=== PATIENT | male | born 1985 | race Caucasian/White ===

== ENCOUNTER 2020-06-30 14:12 | Outpatient (REF) | payer MEDICAID, SELFPAY | END 2020-06-30 14:13 | disposition home or self-care (01) | LOC: HO.LAB 14:12 | PROVIDERS: Visit Provider Internal Medicine | DX: Z20.828 Contact with and (suspected) exposure to other viral communicable diseases (principal) | CPT/HCPCS: C9803; U0003 ==

== ENCOUNTER → 2020-10-18 12:47 | Outpatient (REF) | payer MEDICAID, SELFPAY | LOC: HO.SL 12:47 | PROVIDERS: PCP Internal Medicine; Visit Provider Internal Medicine | DX: G47.33 Obstructive sleep apnea (adult) (pediatric) (principal) | CPT/HCPCS: 95806 ==

== ENCOUNTER → 2020-11-22 15:04 | Outpatient (BNVA) | payer MEDICAID, SELFPAY | PROVIDERS: PCP Internal Medicine; Visit Provider Physician Assistant ==

== ENCOUNTER → 2020-11-23 08:14 | Outpatient (BNVA) | payer MEDICAID, SELFPAY | PROVIDERS: PCP Internal Medicine; Visit Provider Surgery ==

== ENCOUNTER 2020-11-27 14:56 | Outpatient (REF) | payer MEDICAID, SELFPAY ==
[2020-11-28 15:51] LABS: H Pylori Breath Test DETECTED (NOT DETECTED)
== END 2020-11-27 14:57 | disposition home or self-care (01) ==
LOC: HO.LNP 14:56
PROVIDERS: PCP Internal Medicine; Visit Provider Physician Assistant
DX: Z11.0 Encounter for screening for intestinal infectious diseases (principal)
CPT/HCPCS: 83013; 99211

== ENCOUNTER 2020-11-28 09:29 | Outpatient (REF) | payer MEDICAID, SELFPAY ==
--- NOTE | ~2020-11-28 | XR_ITS ---
EXAMINATION: XR CHEST CLINICAL INFORMATION: Morbid obesity COMPARISON: Chest x-ray September 13, 2019 TECHNIQUE: 2 views of the chest were obtained. FINDINGS: Cardiac silhouette is normal in size. Lungs are well aerated. There is no lobar consolidation. No pleural effusion or pneumothorax. No acute osseous abnormality. XR/XR chest 2V IMPRESSION: Stable examination demonstrating no acute pulmonary pathology.
--- NOTE | 2020-11-28 09:35 | ECG_ITS ---
Test Reason : OBESITY Blood Pressure : / mmHG Vent. Rate : 075 BPM Atrial Rate : 075 BPM P-R Int : 172 ms QRS Dur : 098 ms QT Int : 388 ms P-R-T Axes : 036 033 013 degrees QTc Int : 433 ms Normal sinus rhythm Normal ECG When compared with ECG of 09-APR-2010 11:07, T wave amplitude has decreased in Lateral leads Referred By: Trevor Swift Electronically Signed By:ROLDAN MILNER MD
[2020-11-28 10:28] LABS: MANUAL DIFF FLAG NO
[2020-11-28 10:44] LABS: Basophils Percent Auto 0.1 % (0-2); Eosinophils Absolute Auto 0.1 X10*3/uL (0.0-0.4); Eosinophils Percent Auto 1.9 % (0-4); Hemoglobin 14.6 g/dl (14.0-18.0); Imm Gran Abs Auto 0.02 X10*3/uL (0.00-0.03); Imm Gran Pct Auto 0.3 % (0.0-0.4); Lymphocytes Absolute Auto 1.6 X10*3/uL (1.2-4.9); Lymphocytes Percent Auto 21.1 % (20-40); Mean Corpuscular HGB Conc 32.4 g/dl (31.0-36.0); Mean Corpuscular Hemoglobin 28.7 pg (27.0-33.0); Mean Corpuscular Volume 88.4 fL (80-98); Mean Platelet Volume 9.8 fL (9.4-12.4); Monocytes Absolute Auto 0.6 X10*3/uL (0.1-1.2); Monocytes Percent Auto 8.1 % (2-11); Neutrophils Absolute Auto 5.1 X10*3/uL (2.0-8.3); Neutrophils Percent Auto 68.5 % (45-73); Platelet Count 305 X10*3/uL (160-400); Red Blood Count 5.09 X10*6/uL (4.60-5.80); Red Cell Distribution Width 13.4 % (11.0-16.0); White Blood Count 7.4 X10*3/uL (4.8-10.8)
[2020-11-28 10:50] LABS: Estimated Average Glucose 120 mg/dL; Hemoglobin A1C 150.2013 umol/L; Hemoglobin A1c % 5.8 %
[2020-11-28 11:04] LABS: Alanine Aminotransferase 26 U/L (0-40); Albumin Level 4.3 g/dL (3.5-5.0); Alkaline Phosphatase 58 U/L (39-117); Anion Gap 10 (12-20); Aspartate Amino Transferase 21 U/L (5-37); Bilirubin Total 0.7 mg/dL (0.0-1.0); Blood Urea Nitrogen 11 mg/dL (9-16); C Reactive Protein 0.87 mg/dL (< or = 0.50); Calcium 9.2 mg/dL (8.4-10.2); Carbon Dioxide 29 mmol/L (22-29); Chloride 104 mmol/L (96-108); Cholesterol 197 mg/dL; Estimated Glomerular Filt Rate > 60; Glucose Random 100 mg/dL (60-115); HDL Cholesterol 36 mg/dL; LDL Cholesterol Calculated 146 mg/dl; Potassium 4.4 mmol/L (3.3-5.1); Sodium 139 mmol/L (135-145); Total Protein 7.3 g/dL (6.5-8.0); Triglycerides 75 mg/dL
[2020-11-28 11:09] LABS: Ferritin 132 ng/mL (20-250); TSH reflex Free T4 0.77 uIU/mL (0.32-4.0); Vitamin D 25-OH Total 17.4 ng/mL (>30)
[2020-11-28 11:27] LABS: Folate 11.4 ng/mL (> or = 4.0); Vitamin B12 565 pg/mL (200-900)
[2020-11-29 06:37] LABS: Insulin Level Total 28.1 uIU/mL
[2020-11-29 15:01] LABS: Calcium (PTHI) 9.5 mg/dL (8.6-10.3); PTHI 45 pg/mL (14-64)
[2020-12-01 07:51] LABS: Zinc 85 mcg/dL (60-130)
[2020-12-01 21:07] LABS: Vitamin A 40 mcg/dL (38-98)
[2020-12-02 12:42] LABS: Vitamin B1 11 nmol/L (8-30)
== END 2020-11-28 09:30 | disposition home or self-care (01) ==
LOC: HO.LAB 09:29
PROVIDERS: PCP Internal Medicine; Visit Provider Surgery
DX: E66.01 Morbid (severe) obesity due to excess calories (principal); K21.9 Gastro-esophageal reflux disease without esophagitis; I10 Essential (primary) hypertension; G47.30 Sleep apnea, unspecified
CPT/HCPCS: 36415; 71046; 80053; 80061; 82306; 82607; 82728; 82746; 83036; 83525; 83970; 84425; 84443; 84590; 84630; 85025; 86140; 93005

== ENCOUNTER → 2020-12-04 15:06 | Outpatient (BNVA) | payer MEDICAID, SELFPAY | PROVIDERS: PCP Internal Medicine; Visit Provider Physician Assistant ==

== ENCOUNTER 2020-12-06 09:20 | Outpatient (REF) | payer MEDICAID, SELFPAY ==
--- NOTE | ~2020-12-06 | FL_ITS ---
EXAMINATION: FL GI SERIES CLINICAL INFORMATION: Obesity. COMPARISON: None TECHNIQUE: Upper GI was performed using thin and thick barium and effervescent granules. FINDINGS: Esophageal motility is normal. There is a small, sliding-type hiatal hernia. There is mild gastroesophageal reflux. The stomach and duodenum are normal appearing. No fold thickening, mass, ulcer or stricture is seen. FLUOROSCOPY TIME: 0.7 minutes DOSE AREA PRODUCT: 10.5 uGy-m2 (microgray-meter squared) IMAGES: 15 saved fluoroscopic images FL/FL upper GI series IMPRESSION: Small, sliding-type hiatal hernia. Minimal gastroesophageal reflux.
--- NOTE | ~2020-12-06 | US_ITS ---
EXAMINATION: US COMPLETE ABDOMEN WITH LIVER ELASTOGRAPHY CLINICAL INFORMATION: Obesity COMPARISON: None. TECHNIQUE: Real-time imaging of the abdominal viscera. Noninvasive ultrasound liver fibrosis assessment is performed using Corina ElastPQ point quantification shear wave elastography (pSWE) with a C5-2 MHz transducer. Multiple elastography samples are obtained. FINDINGS: PANCREAS: Not well visualized. ABDOMINAL AORTA: Not well visualized. INFERIOR VENA CAVA: Visualized portions are normal. LIVER: Liver echotexture is increased. The liver is normal in contour. Liver slightly enlarged. There is a hypoechoic area adjacent to the gallbladder, characteristic location of focal fatty sparing. No other focal liver lesion is seen. There is no biliary duct dilatation. The right lobe measures 18 cm in length. The left lobe measures 13 cm in length. Portal flow is the main portal vein is patent with appropriate hepatopedal flow. Shear wave liver elastography median stiffness is 1.8 m/s (reference: normal median stiffness is 1.3 m/s or less). IQR/median stiffness to assess sampling precision is 1.2 (reference: good quality data set is IQR/median stiffness of 0.15 or less). GALLBLADDER: Normal. The gallbladder is physiologically distended without evidence of stones, sludge, polyps, wall thickening or pericholecystic fluid. COMMON BILE DUCT: Normal in caliber measuring 0.4 cm in diameter. RIGHT KIDNEY: Normal. No hydronephrosis. No renal calculi or focal parenchymal lesions. The kidney measures 12.5 cm in maximum dimension. LEFT KIDNEY: Normal. No hydronephrosis. No renal calculi or focal parenchymal lesions. The kidney measures 12.2 cm in maximum dimension. SPLEEN: Normal. The spleen measures 10.3 cm in maximum dimension. FREE FLUID: None. US/US abdomen comp w elastography IMPRESSION: 1. Impression: Enlarged echogenic liver probably representing fatty infiltration. Limited visualization of the pancreas and aorta. 2. Liver elastography: Very limited due to sampling error. REFERENCE: Society of Radiologists in Ultrasound Liver Stiffness Thresholds (2020): LIVER STIFFNESS THRESHOLDS: *Liver Stiffness equal or less than 1.3 m/s: High probability of being normal. *Liver Stiffness less than 1.7 m/s: In the absence of other known clinical signs, rules out compensated advanced chronic liver disease. *Liver Stiffness 1.7-2.1 m/s: Suggestive of compensated advanced chronic liver disease but need further test for confirmation. *Liver Stiffness over 2.1 m/s: Rules in compensated advanced chronic liver disease. *Liver Stiffness over 2.4 m/s: Suggestive of clinically significant portal hypertension. QUALITY OF DATA SET: *IQR/Median value equal or less than 0.15 implies a quality data set. *IQR/Median value over 0.15 implies a poor quality data set. SIGNIFICANT CHANGE FROM PRIOR EXAM: Significant change if liver stiffness measurement is 10% or greater from prior exam. OTHER CONSIDERATIONS: The stage of liver fibrosis may be overestimated in the setting of acute hepatitis, liver inflammation, elevated liver function tests, hepatic vascular congestion, obstructive cholestasis, non-fasting state, and infiltrative diseases such as amyloidosis and lymphoma. In some patients with NAFLD, the liver stiffness thresholds for compensated advanced chronic liver disease may be lower. In causes other than viral hepatitis and NAFLD, liver stiffness thresholds are not well established.
== END 2020-12-06 09:21 | disposition home or self-care (01) ==
LOC: HO.US 09:20
PROVIDERS: PCP Internal Medicine; Visit Provider Surgery
DX: Z01.818 Encounter for other preprocedural examination (principal); E66.01 Morbid (severe) obesity due to excess calories; K21.9 Gastro-esophageal reflux disease without esophagitis; I10 Essential (primary) hypertension; G47.30 Sleep apnea, unspecified
CPT/HCPCS: 74240; 76705; 76981

== ENCOUNTER → 2020-12-15 08:09 | Outpatient (BNVA) | payer MEDICAID, SELFPAY | PROVIDERS: PCP Internal Medicine; Visit Provider Surgery ==

== ENCOUNTER → 2020-12-18 08:28 | Outpatient (BNVA) | payer MEDICAID, SELFPAY | PROVIDERS: PCP Internal Medicine; Visit Provider Dietitian, Registered | DX: E66.01 Morbid (severe) obesity due to excess calories (principal); Z68.41 Body mass index [BMI] 40.0-44.9, adult | CPT/HCPCS: 97802 ==

== ENCOUNTER → 2020-12-22 09:40 | Outpatient (BNVA) | payer MEDICAID, SELFPAY | PROVIDERS: PCP Internal Medicine; Visit Provider Physician Assistant ==

== ENCOUNTER 2021-01-02 15:08 | Outpatient (REF) | payer MEDICAID, SELFPAY ==
[2021-01-03 14:47] LABS: H Pylori Breath Test NOT DETECTED (NOT DETECTED)
== END 2021-01-02 15:09 | disposition home or self-care (01) ==
LOC: HO.LNP 15:08
PROVIDERS: PCP Internal Medicine; Referring Provider Internal Medicine; Visit Provider Surgery
DX: A04.8 Other specified bacterial intestinal infections (principal)
CPT/HCPCS: 83013; 99211

== ENCOUNTER → 2021-01-05 08:17 | Outpatient (BNVA) | payer MEDICAID, SELFPAY | PROVIDERS: PCP Internal Medicine; Visit Provider Surgery ==

== ENCOUNTER → 2021-01-08 08:21 | Outpatient (BNVA) | payer MEDICAID, SELFPAY | PROVIDERS: PCP Internal Medicine; Visit Provider Dietitian, Registered | DX: E66.01 Morbid (severe) obesity due to excess calories (principal); Z68.41 Body mass index [BMI] 40.0-44.9, adult | CPT/HCPCS: 97803 ==

== ENCOUNTER → 2021-01-24 15:38 | Outpatient (BNVA) | payer MEDICAID, SELFPAY | PROVIDERS: PCP Internal Medicine; Visit Provider Surgery ==

== ENCOUNTER → 2021-01-25 09:27 | Outpatient (BNVA) | payer MEDICAID, SELFPAY | PROVIDERS: PCP Internal Medicine; Visit Provider Physician Assistant ==

== ENCOUNTER 2021-01-26 07:49 | Inpatient (IN) | payer MEDICAID, SELFPAY ==
[2021-01-24 09:26] VITALS: BMI 41.3
[2021-01-24 17:51] LABS: MANUAL DIFF FLAG NO
[2021-01-24 17:52] LABS: Basophils Percent Auto 0.1 % (0-2); Eosinophils Absolute Auto 0.1 X10*3/uL (0.0-0.4); Eosinophils Percent Auto 1.2 % (0-4); Hematocrit 44.2 % (42-52); Hemoglobin 14.8 g/dl (14.0-18.0); Imm Gran Abs Auto 0.02 X10*3/uL (0.00-0.03); Imm Gran Pct Auto 0.3 % (0.0-0.4); Lymphocytes Percent Auto 13.1 % (20-40); Mean Corpuscular HGB Conc 33.5 g/dl (31.0-36.0); Mean Corpuscular Hemoglobin 29.4 pg (27.0-33.0); Mean Corpuscular Volume 87.7 fL (80-98); Mean Platelet Volume 9.9 fL (9.4-12.4); Monocytes Absolute Auto 0.7 X10*3/uL (0.1-1.2); Monocytes Percent Auto 9.4 % (2-11); Neutrophils Absolute Auto 5.9 X10*3/uL (2.0-8.3); Neutrophils Percent Auto 75.9 % (45-73); Platelet Count 256 X10*3/uL (160-400); Red Blood Count 5.04 X10*6/uL (4.60-5.80); Red Cell Distribution Width 13.9 % (11.0-16.0); White Blood Count 7.7 X10*3/uL (4.8-10.8)
[2021-01-24 17:57] LABS: INTERNATIONAL NORM RATIO 1.2 (0.9-1.1); Prothrombin Time 14.4 SEC (10.8-13.0)
[2021-01-24 18:01] LABS: Partial Thromboplastin Time 45.1 SEC (24.1-38.0)
[2021-01-24 18:10] LABS: Estimated Average Glucose 114 mg/dL; Hemoglobin A1c % 5.6 %
[2021-01-24 18:14] LABS: Alanine Aminotransferase 23 U/L (0-40); Albumin Level 4.4 g/dL (3.5-5.0); Alkaline Phosphatase 66 U/L (39-117); Anion Gap 13 (12-20); Aspartate Amino Transferase 19 U/L (5-37); Bilirubin Total 0.5 mg/dL (0.0-1.0); Blood Urea Nitrogen 13 mg/dL (9-16); C Reactive Protein 1.39 mg/dL (< or = 0.50); Calcium 9.9 mg/dL (8.4-10.2); Carbon Dioxide 28 mmol/L (22-29); Chloride 102 mmol/L (96-108); Cholesterol 171 mg/dL; Creatinine Clr Calc Pharmacy 150.6; Estimated Glomerular Filt Rate > 60; Glucose Random 97 mg/dL (60-115); HDL Cholesterol 35 mg/dL; LDL Cholesterol Calculated 113 mg/dl; Potassium 4.6 mmol/L (3.3-5.1); Sodium 138 mmol/L (135-145); Total Protein 7.1 g/dL (6.5-8.0); Triglycerides 115 mg/dL
[2021-01-24 18:35] LABS: TSH reflex Free T4 0.94 uIU/mL (0.32-4.0)
--- NOTE | 2021-01-25 16:26 | MHC.SHP ---
Pre-Procedural Eval Section A The patient is an INPATIENT: Yes The History & Physical has been completed within 30 days and I have reviewed it.: Yes Section B Chief Complaint: Morbid Severe Obesity Details of Present Illness: Obesity Relevant Family History (Specify if Yes): No Relevant Social History: None Present Medications: see Short Stay Collaborative assessment Medical History: No relevant PMH History of Previous Operations: No relevant previous surgery Allergies: Allergies Allergy/AdvReac Type Severity Reaction Status Date / Time No Known Allergies Allergy Unverified 01/24/21 09:03 Review of Systems Sugical H&P ROS: Negative: Constitution, Cardiovascular, Respiratory, Neurological, Psychiatric, Hem-Onc, Allergic/Immunologic, Gastrointestinal, Genitourinary, Musculoskeletal, Integumentary, Endocrine and Eyes/Ears/Nose/Throat Exam Surgical H&P Exam: Normal: HEENT, Normal: Heart, Normal: Lungs, Normal: Extremities, Normal: Abdomen, Normal: Skin and Normal: Neurological Plan Diagnosis/Plan: Unchanged I have reviewed the history and physical and performed a pertinent physical examination on my patient. No changes have occurred unless specified.
[2021-01-25 17:51] LABS: Insulin Level Total 52.3 uIU/mL
[2021-01-26] VITALS (12 sets, daily range): BP systolic 116–143; BP diastolic 58–92; PULSE 81–99; RESP 13–20; TEMP 35.8–37.1; O2SAT 94–99
[2021-01-26 08:11] LABS: COVID-19 Test Negative (Negative)
[2021-01-26] MEDS: Lactated Ringers 1,000 ML 999 ML IV (08:40)
--- NOTE | 2021-01-26 08:52 | HO.ANESPROP2 ---
[facility] Active Problems Active Problems: All Active Problems (Updated 01/24/21 @ 09:30 by Sandra Read) Vitamin D deficiency (Acute) H. pylori infection (Acute) Adjustment disorder, unspecified (Acute) Umbilical hernia (Acute) Lower extremity edema (Acute) Depression (Acute) Back pain (Acute) Sleep apnea with use of continuous positive airway pressure (CPAP) (Acute) GERD (gastroesophageal reflux disease) (Acute) Hypertension (Acute) Morbid obesity (Acute) Past Medical History Medical History Back pain COVID-19 vaccine series completed Depression GERD (gastroesophageal reflux disease) Hypertension Lower extremity edema Morbid obesity Sleep apnea with use of continuous positive airway pressure (CPAP) Umbilical hernia Surgical History Surgical History History of lymph node excision Social History Social History Are you a primary day care director to a significant other at home: No Do you presently have visiting nurse or other home services: No Alcohol intake: never Patient Tobacco Use Status: Never used Tobacco Use of substances other than those prescribed or required for medical reasons: No Have you been hit, kicked, punched, or otherwise hurt by someone within the past year? If so, by whom?: No Are you DNR?: No Advance Directives: No Advance Directives Information Provided: No Advance Directives on File: No Recently lost weight without trying: No How much weight loss: 14-23 pounds Eating poorly because of decreased appetite: No Nutrition screen score: 2 Nutrition Risks: No Nutritional Risk Meds Allergies Allergy/AdvReac Type Severity Reaction Status Date / Time No Known Allergies Allergy Unverified 01/24/21 09:03 Home Medications Medication Instructions Recorded Confirmed Last Taken Type hydrochlorothiazide 25 mg tablet 25 mg PO DAILY 11/23/20 01/24/21 Unknown History lisinopril 20 mg tablet 20 mg PO DAILY 11/23/20 01/24/21 Unknown History amlodipine 10 mg PO DAILY 01/24/21 01/24/21 Unknown History Exam Exam Date and Time: January 26, 2021 0852 Height,Weight and Vital Signs: Height 5 ft 10 in Weight 130.635 kg Last Vital Signs Temp 98.8 F 06/04/21 08:29 Pulse 81 01/26/21 08:29 Resp 20 01/26/21 08:29 BP 143/83 H 01/26/21 08:29 Pulse Ox 95 01/26/21 08:29 Pertinent Lab Results Pertinent Lab Results: Laboratory Tests 01/24/21 01/24/21 01/24/21 17:15 17:15 17:15 WBC 7.7 RBC 5.04 Hgb 14.8 Hct 44.2 MCV 87.7 MCH 29.4 MCHC 33.5 RDW 13.9 Plt Count 256 MPV 9.9 Immature Gran % (Auto) 0.3 Neut % (Auto) 75.9 H Lymph % (Auto) 13.1 L Blackford % (Auto) 9.4 Eos % (Auto) 1.2 Baso % (Auto) 0.1 Lymph # (Auto) 1.0 L Blackford # (Auto) 0.7 Eos # (Auto) 0.1 Baso # (Auto) 0.0 Abs Immat Gran (auto) 0.02 Absolute Neuts (auto) 5.9 Absolute Nucleated RBC 0.000 Nucleated RBC % (auto) 0.0 PT 14.4 H INR 1.2 H APTT 45.1 H Sodium 138 Potassium 4.6 Chloride 102 Carbon Dioxide 28 Anion Gap 13 BUN 13 Creatinine 0.93 Estim Creat Clear Calc 150.6 Estimated GFR > 60 Random Glucose 97 Estimat Average Glucose Hemoglobin A1c % Total Insulin Calcium 9.9 D Total Bilirubin 0.5 AST 19 ALT 23 Alkaline Phosphatase 66 C-Reactive Protein 1.39 H Total Protein 7.1 Albumin 4.4 Triglycerides 115 Cholesterol 171 LDL Cholesterol, Calc 113 HDL Cholesterol 35 TSH 0.94 COVID-19 (ROXY) COVID-19 Clin Com Blood Type Antibody Screen 01/24/21 01/24/21 01/24/21 17:15 17:15 17:15 WBC RBC Hgb Hct MCV MCH MCHC RDW Plt Count MPV Immature Gran % (Auto) Neut % (Auto) Lymph % (Auto) Blackford % (Auto) Eos % (Auto) Baso % (Auto) Lymph # (Auto) Blackford # (Auto) Eos # (Auto) Baso # (Auto) Abs Immat Gran (auto) Absolute Neuts (auto) Absolute Nucleated RBC Nucleated RBC % (auto) PT INR APTT Sodium Potassium Chloride Carbon Dioxide Anion Gap BUN Creatinine Estim Creat Clear Calc Estimated GFR Random Glucose Estimat Average Glucose 114 Hemoglobin A1c % 5.6 Total Insulin 52.3 H Calcium Total Bilirubin AST ALT Alkaline Phosphatase C-Reactive Protein Total Protein Albumin Triglycerides Cholesterol LDL Cholesterol, Calc HDL Cholesterol TSH COVID-19 (ROXY) COVID-19 Clin Com Blood Type O Positive Antibody Screen NEGATIVE 01/26/21 07:40 WBC RBC Hgb Hct MCV MCH MCHC RDW Plt Count MPV Immature Gran % (Auto) Neut % (Auto) Lymph % (Auto) Blackford % (Auto) Eos % (Auto) Baso % (Auto) Lymph # (Auto) Blackford # (Auto) Eos # (Auto) Baso # (Auto) Abs Immat Gran (auto) Absolute Neuts (auto) Absolute Nucleated RBC Nucleated RBC % (auto) PT INR APTT Sodium Potassium Chloride Carbon Dioxide Anion Gap BUN Creatinine Estim Creat Clear Calc Estimated GFR Random Glucose Estimat Average Glucose Hemoglobin A1c % Total Insulin Calcium Total Bilirubin AST ALT Alkaline Phosphatase C-Reactive Protein Total Protein Albumin Triglycerides Cholesterol LDL Cholesterol, Calc HDL Cholesterol TSH COVID-19 (ROXY) Negative COVID-19 Clin Com See Note Blood Type Antibody Screen Airway Mallampati Class: II TM Dist: >3cm Neck ROM: Full
[2021-01-26] MEDS: Lactated Ringers 1,000 ML 100 ML IVCONT (09:07)
--- NOTE | 2021-01-26 09:34 | P.BOP_ITS ---
Brief Operative Note Date of Service: 01/26/21 Pre-op diagnosis: Morbid obesity with comorbidities (see below) Post-op diagnosis: same Procedure: INITIAL PATIENT BMI ON PRESENTATION AT OUR OFFICE: 44.9 kg/m2 LAST BMI BEFORE SURGERY: 40.9 kg/m2 COMORBIDITIES: GERD, diaphragmatic hernia, sleep apnea, hypertension, prediabetes, lower extremity edema, back pain, liver steatosis, liver fibrosis, hepatomegaly The patient participated in an intensive weekly lifestyle intervention and exercise program during which the patient has lost between the initial office visit and the last preoperative visit 29.3 lbs, or 9.23% of initial actual body weight. The patient met the BMI-criteria for bariatric surgery based on the BMI on initial presentation. The patient should not be penalized for achieving such weight loss because it is not sustainable long-term without surgical intervention and it was achieved in preparation for bariatric surgery under my direction and based on my published research ([email or web address] and [email or web address]) that a 10% preoperative weight loss improves long-term weight loss after surgery and reduces perioperative complications. Insurance carriers such as [facility] have endorsed my recommendations and have included in their policies criteria to include a 10% preoperative weight loss requirement. PROCEDURE: Esophago-gastroscopy, laparoscopic repair of incarcerated diaphragmatic hernia, laparoscopic lysis of adhesions, laparoscopic sleeve gastrectomy and laparoscopic gastropexy INDICATIONS: This is a 35 year-old male who was electively scheduled for laparoscopic, possibly open sleeve gastrectomy. The risks and complications of the procedure were discussed with the patient in advance, particularly the possibility of ; pulmonary embolism; staple line leak; bleeding; GERD; cardiac, pulmonary, or renal complications; as well as long-term problems such as insufficient weight loss, vitamin deficiency, strictures, or ulcers. The patient understood all the risks, and was in agreement to proceed with surgery. DESCRIPTION OF PROCEDURE: After informed consent was obtained from the patient, the patient was given preo perative antibiotics, and was transferred to the operating room. After successful induction of general anesthesia, pneumatic compressive devices were placed on both lower extremities. An upper endoscopy was performed next. The oropharynx and esophagus appeared to be within normal limits. There was a diaphragmatic hernia present of moderate size consistent with the findings of the preoperative upper GI. The stomach was entered. Then after all fluid and air were suctioned and the stomach was fully decompressed, the scope was withdrawn and secured in the mid esophagus. The patient was then prepped and draped in the usual sterile manner, and abdominal access was established at the right upper quadrant with the Ronald technique. A 12 mm blunt port was inserted, and the abdomen was insufflated with CO2 to a pressure of 15 mmHg. Under direct visualization, additional ports were placed, specifically two 5 mm Versi-step ports to the left upper quadrant, and a 5 mm Versi-Step port to the right upper quadrant. 1% lidocained plan was used to infiltrate all port sites as well as all fascia defects. Using the EndoClose suture passer device, we placed a #1 Polysorb tie across the falciform ligament in order to retract it up against the abdominal wall and prevent injury of the ligament with our instruments during the procedure. Following that, the patient was placed in a steep reverse Trendelenburg position. An additional 5 mm port was placed to the right flank for the Mediflex retractor that was used to retract the left lobe of the liver. The gastro-esophageal fat pad was opened with the ultrasonic device (Thunderbeat, Olympus) and the anterior esophagus and hiatus were exposed. The angle of His was opened with the ultrasonic device the fundus of the stomach from any diaphragmatic and splenic attachments. I then opened the gastrocolic ligament between the transverse colon and the greater curvature of the stomach with the ultrasonic device to enter the lesser sac and facilitate the ligation of the short gastric vessels. I started at a mid-point along the greater curvature and using the Thunderbeat, all short gastric vessels were divided all the way to the angle of His until the left derrek was completely dissected at its entirety. I then divided the gastro-colic ligament distally to a distance of about 3-4 cm proximal to the esophagus. There were extensive congenital adhesions between the pancreas and posterior gastric wall. Those were lysed completely with the ultrasonic device. Adhesiolysis took approximately 45 min to complete. There was an obvious significant-sized hiatal hernia. I continued dissecting along the hiatus toward the left derrek and the angle of His. I fully mobilized the fat pad that was incarcerated in the hernia. I then continued by dissecting even further into the posterior retro-esophageal space all the way to the angle of His. I continued to mobilize the esophagus into the mediastinum circumferentially. Both vagal nerves were seen and preserved. At that point, I was able to have at least 3 to 5 cm of esophagus into the abdomen. After I completely mobilized the esophagus from both the left and right derrek and I had a good mobilization of the esophagus circumferentially, I closed the hernia defect with four interrupted #0 Surgidac sutures using the Endo Stitch device, three of which were placed posterior and one anterior to the esophagus. The stomach was then divided transversely with two Endo CARINA-45 and four CARINA-60 articulating purple loads using the TapTap stapler and loads. Every effort was made that the gastric sleeve had a tubular shape and an even caliber throughout. Once the sleeve resection was completed, the staple line of the gastric sleeve was reinforced with Hemoclips. The resected stomach was retrieved without difficulty from the Ronald port. A gastropexy was then performed in order to prevent postoperative GERD and partial gastric volvulus. Several interrupted 2.0 Surgidac sutures were placed between the sleeve's staple line and the previously divided greater omentum and gastro-colic ligament using the Endo-Stitch device. An upper endoscopy was performed. There was no narrowing at the GE junction. The scope was easily advanced all the way to the pylorus which was clearly visualized. There was no narrowing anywhere and the sleeve's caliber was even throughout. The sleeve's staple line was inspected and there was no evidence of ischemia, bleeding or dehiscence. At that point the gastroscope was withdrawn from the patient?s mouth while we were decompressing the bowel and the stomach from any remaining air. I looked into the lesser sac to see how the sleeve was situating and it was situating well. There was no bleeding from the staple line, spleen, or short gastric vessels. The Mediflex retractor was removed, and the undersurface of the liver was inspected and there was no bleeding. The patient was placed in supine position. I closed the fascial defect of the 12 mm port site with a figure of eight #1 Polysorb suture. Then 100 cc 0.25 % Marcaine plain with 10 mg of Dexamethasone were used to infiltrate the fascial closure as well as all skin incisions. At this point, the abdomen was deflated, all ports were removed under direct vision, and no bleeding was noted from any of the port sites. The skin incisions were irrigated with saline and were closed with 4-0 absorbable monofilament sutures. Steri-Strips and OpSites were used to cover all incisions. The patient was extubated and was transferred in stable condition to the recovery room for further care. I was present and performed all thornton parts of the procedure. Ms. Howell was the engineer first assistant. There were no residents to assist with this case. Jairon Swift MD, PhD, FACS Surgeon: Trevor Swift MD Anesthesia: GETA, local and other (TAP block) Was an Etl Data Architect used for this Procedure?: No Etl Data Architect: Yael Howell Estimated blood loss (mL): 10 Urine output (mL): 0 (No Garcia to record) Pathology: other (stomach) Condition: stable Disposition: PACU
--- NOTE | 2021-01-26 09:37 | PM.PNGS ---
Subjective Subjective Date of Service: 01/27/21 Interval history: Patient has mild incisional pain but was able to ambulate and use the incentive spirometer. Is tolerating phase 1 bariatric diet. Physical Exam Vital Signs: Vital Signs: Last Vital Signs Temp 98.8 F 01/26/21 08:29 Pulse 81 01/26/21 08:29 Resp 20 01/26/21 08:29 BP 143/83 H 01/26/21 08:29 Pulse Ox 95 01/26/21 08:29 Body Mass Index 41.3 GI: Inspection: Yes normal to inspection and Yes incision (clean, dry and intact) Extrem: Right lower extremity: normal to inspection (no calf tenderness) Left lower extremity: normal to inspection (no calf tenderness) Progress Note: A&P Assessment and plan (1) Morbid obesity: Status: Acute (2) Hypertension: Status: Acute (3) GERD (gastroesophageal reflux disease): Status: Acute (4) Sleep apnea with use of continuous positive airway pressure (CPAP): Status: Acute (5) Lower extremity edema: Status: Acute (6) Depression: Status: Acute (7) Back pain: Status: Acute (8) Diaphragmatic hernia: Status: Acute (9) S/P laparoscopic sleeve gastrectomy: Status: Acute Assessment and Plan: s/p lap sleeve gastrectomy, gastropexy and diaphragmatic hernia repair Doing well Check am labs. If Ok, will d/c home (10) Status post repair of paraesophageal diaphragmatic hernia: Status: Acute (11) Prediabetes: Status: Acute (12) Steatosis, liver: Status: Acute (13) Liver fibrosis: Status: Acute (14) Hepatomegaly: Status: Acute (15) Congenital intra-abdominal adhesions: Status: Acute Fall Risk Details Current Medications: Current Medications Generic Name Dose Route Start Last Admin Trade Name Freq PRN Reason Stop Dose Admin Fentanyl 50 mcg 01/26/21 08:53 Fentanyl Citrate/Pf 100 Mcg/2 Ml Vial IVPUSH Q5M PRN Pain, Severe (Pain Scale 7-10) Lactated Ringer's 1,000 mls @ 100 mls/hr 01/26/21 09:00 01/26/21 09:07 Lr IVCONT 100 mls/hr .Q10H WERNER Administration Ondansetron HCl 4 mg 01/26/21 08:53 Ondansetron Hcl 4 Mg/2 Ml Vial IVPUSH ONCE PRN Nausea and Vomiting Time Spent With Patient Time: Total time spent is greater than 50% in coordination of care (as documented) at patient's floor/unit and/or counseling patient: Time with patient: less than 15 minutes Procedures Date of Service Date of Service: 01/27/21
--- NOTE | 2021-01-26 12:34 | P.DS_ITS ---
DS: Providers Provider Date of Service: 01/27/21 Date of admission: 01/26/21 07:49 Primary care physician: Frannie Chandra MD DS: Diagnosis Discharge Diagnosis (1) Morbid obesity: Status: Acute (2) Hypertension: Status: Acute (3) GERD (gastroesophageal reflux disease): Status: Acute (4) Sleep apnea with use of continuous positive airway pressure (CPAP): Status: Acute (5) Umbilical hernia: Status: Acute (6) Lower extremity edema: Status: Acute (7) Depression: Status: Acute (8) Back pain: Status: Acute (9) Diaphragmatic hernia: Status: Acute DS: Medications Discharge Medications Home Medications: Home Medications Medication Instructions Recorded Confirmed hydrochlorothiazide 25 mg tablet 25 mg PO DAILY 11/23/20 01/24/21 lisinopril 20 mg tablet 20 mg PO DAILY 11/23/20 01/24/21 amlodipine 10 mg PO DAILY 01/24/21 01/24/21 Previous Rx's Medication Instructions Recorded amoxicillin 500 mg capsule 500 mg PO Q12H #28 cap 12/04/20 cholecalciferol (vitamin D3) 125 125 mcg PO DAILY #30 cap 12/04/20 mcg (5,000 unit) capsule clarithromycin 500 mg tablet 500 mg PO Q12H #28 tab 12/04/20 omeprazole 40 mg capsule,delayed 40 mg PO DAILY #14 cap 12/04/20 release ondansetron HCl 4 mg tablet 4 mg PO Q12H #20 tab 01/24/21 pantoprazole 40 mg tablet,delayed 40 mg PO DAILY #30 tab 01/24/21 release sucralfate 100 mg/mL oral 10 ml PO BID #400 ml 01/24/21 suspension DS: Summary Time Spent with Patient Time attestation: ADMITTING DIAGNOSIS: morbid obesity, JUNIOR, HTN, GERD and diaphragmatic hernia DISCHARGE DIAGNOSIS: same, s/p laparoscopic sleeve gastrectomy and repair diaphragmatic hernia PAST SURGICAL HISTORY: none PROCEDURE: upper endoscopy, laparoscopic sleeve gastrectomy and repair of diaphragmatic hernia hernia DISCHARGE SUMMARY: History of Present Illness: The patient is a 35year-old woman with a BMI of 44.9 kg/m2 and associated co- morbidities as described above. The patient had extensive work-up,lost 22.3 lbs preoperatively and was electively scheduled for laparoscopic, possible open sleeve gastrectomy and gastropexy. Risks and complications of the surgery were discussed with the patient in advance, particularly the possibility of , pulmonary embolism, anastomotic leak, bleeding, bowel injury, GERD, cardiac, renal or pulmonary complications. The patient understood all the risks and was in agreement with the surgical plan. Hospital Course: The patient underwent an uneventful laparoscopic sleeve gastrectomy with gastropexy and repair of diaphragmatic hernia on the day of admission. Postoperatively, the patient was transferred to the surgical floor. The patient was on IV Acetaminophen and IV dilaudid for pain control. Patient was started on bariatric phase 1 diet POD #0. On postoperative day one, the patient was feeling well without nausea, vomiting, fevers, or tachycardia. The patient had some mild incisional pain. The abdomen was soft. On the morning of postoperative day one, the patient was continued on 1 ounce of water or ice every half hour. During the first day, the patient did fairly well, having some incisional pain, but able to ambulate adequately and to tolerate liquids well. Since the patient is doing well, we decided that the patient was ready to be discharged. The patient was given instructions to follow-up with me next week and to call my office for any fever over 101, persistent abdominal pain, nausea, vomiting, GERD, symptoms of DVT such as calf tenderness, or leg swelling, or pulmonary embolism such as chest pain or shortness of breath. The patient was also instructed to drink 40-60 ounces of liquids per day using the 1-ounce cups. The patient was given prescription for Tylenol for pain, Zofran prn for nausea, and pantoprazole and carafate. The patient was encouraged to ambulate and use the incentive spirometer. The patient was allowed to shower, but no baths, and encouraged to stay active at home. All of these instructions were given to the patient personally. All questions were answered and the patient understood all instructions, the instructions were also given to the patient in print. Total time spent providing and/or coordinating discharge services: 15 Discharge coordination time: Less than 30 minutes Quality: Stroke Does the patient have a stroke diagnosis?: No Physical Exam Vital Signs: Vital Signs: Last Vital Signs Temp 97.8 F 01/26/21 12:20 Pulse 99 01/26/21 12:30 Resp 18 01/26/21 12:30 BP 127/81 01/26/21 12:30 Pulse Ox 99 01/26/21 12:30 Body Mass Index 41.3 DS: Data Data Completed and Pending Pending studies at discharge: Pending at discharge 01/26/21 11:30 Surgical [PTH] Routine Labs on day of discharge: Laboratory Results - last 24 hr 01/24/21 01/26/21 17:15 07:40 Total Insulin 52.3 H COVID-19 (ROXY) Negative COVID-19 Clin Com See Note Discharge Plan Discharge Anticipated Discharge Date/Time: 01/27/21 10:29 Patient Disposition: Home, Self-Care Discharge Diagnosis: s/p sleeve gastrectomy Referrals: Frannie Chandra MD [Primary Care Provider] - 1 Week Discharge Medications: Continued sucralfate 100 mg/mL suspension 10 ml PO BID Qty: 400 RF: 2 lisinopril 20 mg tablet 20 mg PO DAILY RF: 0 Held hydrochlorothiazide 25 mg tablet 25 mg PO DAILY RF: 0 Hold Instructions: Discuss when to restart with Dr Jamison Rodrigez cholecalciferol (vitamin D3) 125 mcg (5,000 unit) capsule 125 mcg PO DAILY Qty: 30 RF: 2 omeprazole 40 mg capsule,delayed release(DR/EC) 40 mg PO DAILY Qty: 14 RF: 0 clarithromycin 500 mg tablet 500 mg PO Q12H Qty: 28 RF: 0 Discharge Orders: Discharge Order (Routine); Ordered 01/27/21 Ordered By: Trevor Swift Diet: other Activity on Discharge: No heavy lifting Stand Alone Forms: Patient Portal Discharge page Activity Restrictions/Additional Instructions: No tub baths, sex or returning to work until discussed at first post op appointment. No exercise, alcohol, tobacco or illegal drug use. Continue to use incentive spirometer hourly while awake. Walk in home for 5- 10 minutes every 2 hours during the first week. Continue phase 1 diet today and start phase 2 diet tomorrow morning. Follow all instructions in the bariatric handbook and call with any questions. Care Plan Goals: weight loss Health Concerns: morbid obesity Plan of Treatment: see discharge instructions Assessment: stable POD #1 s/p sleeve gastrectomy Discharge Date/Time: 01/27/21 11:13
[2021-01-26] MEDS: Famotidine/PF 20 MG/2 ML VIAL IVPUSH ×2 (12:46→20:39)
[2021-01-26 12:56] LABS: Hematocrit 44.3 % (42-52); Hemoglobin 14.3 g/dl (14.0-18.0)
[2021-01-26 13:31] LABS: Anion Gap 15 (12-20); Blood Urea Nitrogen 12 mg/dL (9-16); Calcium 9.1 mg/dL (8.4-10.2); Carbon Dioxide 24 mmol/L (22-29); Chloride 104 mmol/L (96-108); Estimated Glomerular Filt Rate > 60; Glucose Random 117 mg/dL (60-115); Potassium 4.7 mmol/L (3.3-5.1); Sodium 138 mmol/L (135-145)
[2021-01-26] MEDS: Lactated Ringers 1,000 ML 125 ML IVCONT ×2 (14:32→20:41)
[2021-01-26] MEDS: ceFAZolin Sodium/Dextrose,Iso 2 GM/50 ML PIGGYBACK IV (15:56)
[2021-01-26] MEDS: HYDROmorphone HCl 0.5 MG/0.5 ML SYRINGE 0.25 MG IVPUSH (16:16)
[2021-01-26] MEDS: ondansetron HCL 4 MG/2 ML VIAL IVPUSH (20:39)
[2021-01-27] VITALS: BP 126/74; PULSE 96; RESP 18; TEMP 36.2; O2SAT 94
[2021-01-27] MEDS: 0.9 % Sodium Chloride Flush 3 ML SYRINGE IVFLUSH ×2 (00:16→07:46)
[2021-01-27 04:00] VITALS: BP 140/77; PULSE 86; RESP 16; TEMP 36.2; O2SAT 95
[2021-01-27] MEDS: ondansetron HCL 4 MG/2 ML VIAL IVPUSH (04:09)
[2021-01-27] MEDS: Lactated Ringers 1,000 ML 125 ML IVCONT (04:12)
[2021-01-27 05:33] VITALS: RESP 18
[2021-01-27 07:16] VITALS: BP 125/81; PULSE 75; RESP 16; TEMP 36.1; O2SAT 92
[2021-01-27 07:17] LABS: MANUAL DIFF FLAG NO
[2021-01-27 07:25] LABS: Hematocrit 41.3 % (42-52); Hemoglobin 13.4 g/dl (14.0-18.0); Imm Gran Abs Auto 0.02 X10*3/uL (0.00-0.03); Imm Gran Pct Auto 0.2 % (0.0-0.4); Lymphocytes Absolute Auto 0.7 X10*3/uL (1.2-4.9); Lymphocytes Percent Auto 7.9 % (20-40); Mean Corpuscular HGB Conc 32.4 g/dl (31.0-36.0); Mean Corpuscular Hemoglobin 28.6 pg (27.0-33.0); Mean Corpuscular Volume 88.2 fL (80-98); Mean Platelet Volume 10.2 fL (9.4-12.4); Monocytes Absolute Auto 0.8 X10*3/uL (0.1-1.2); Monocytes Percent Auto 8.4 % (2-11); Neutrophils Absolute Auto 7.6 X10*3/uL (2.0-8.3); Neutrophils Percent Auto 83.5 % (45-73); Platelet Count 255 X10*3/uL (160-400); Red Blood Count 4.68 X10*6/uL (4.60-5.80); Red Cell Distribution Width 13.9 % (11.0-16.0); White Blood Count 9.2 X10*3/uL (4.8-10.8)
[2021-01-27] MEDS: lisinopriL 20 MG TABLET PO (07:45)
[2021-01-27] MEDS: Famotidine/PF 20 MG/2 ML VIAL IVPUSH (07:45)
[2021-01-27 08:04] LABS: Blood Urea Nitrogen 9 mg/dL (9-16); Creatinine Clr Calc Pharmacy 177.3; Estimated Glomerular Filt Rate > 60; Glucose Random 118 mg/dL (60-115)
[2021-01-27 08:26] LABS: Anion Gap 14 (12-20); Carbon Dioxide 26 mmol/L (22-29); Chloride 104 mmol/L (96-108); Potassium 4.6 mmol/L (3.3-5.1); Sodium 139 mmol/L (135-145)
--- NOTE | 2021-01-27 10:31 | MHC.CM.PN ---
CM MET WITH PT AND HIS WHO WAS AT BEDSIDE. PT REPORTS HE LIVES WITH HIS AND THEIR THREE CHILDREN AGES 7, 11, AND 15. PT REPORTS BEING INDEPENDENT WITH SELF CARE AND MOBILITY. HE DOES REPORTEDLY HAVE A CPAP AND DIABETIC SUPPLIES AT HOME. PT HAS NO HOME SERVICES. PT CONFIRMS HIS PCP IS [facility] JACINTO. PT DOES NOT HAVE A HCP AND DECLINES TO COMPLETE ONE TODAY. PT WILL DC HOME TODAY WITH NO SERVICES WILL TRANSPORT
--- NOTE | 2021-01-27 14:06 | HO.POSTANES ---
Post Anesthesia Evaluation Post Anesthesia Evaluation Vital Signs: Vital Signs Temp Pulse Resp BP Pulse Ox 01/27/21 07:16 96.9 F 75 16 125/81 92 01/27/21 05:33 18 01/27/21 04:00 97.2 F 86 16 140/77 H 95 Anesthesia: General Endotracheal-GETA Mental Status: Awake Pain Control: Satisfactory Nausea/Vomiting: None Hydration: Adequate Anesthesia-Related Issues: No Anes. Related Issues
== END 2021-01-27 11:13 | disposition home or self-care (01) | DRG 403 ==
LOC: HO.SSSA 12:33 → HO.S3 12:44
PROVIDERS: Physician Assistant; Admitting Provider Surgery; PCP Internal Medicine; Visit Provider Surgery
PROC: 0DB64Z3 Excision of Stomach, Percutaneous Endoscopic Approach, Vertical (ICD-10-PCS; CPT 43845; principal; 2021-01-26 09:00)
DX: E66.01 Morbid (severe) obesity due to excess calories (principal); K44.0 Diaphragmatic hernia with obstruction, without gangrene; K74.00 Hepatic fibrosis, unspecified; F32.9 Major depressive disorder, single episode, unspecified; K21.9 Gastro-esophageal reflux disease without esophagitis; M54.9 Dorsalgia, unspecified; K76.0 Fatty (change of) liver, not elsewhere classified; K66.0 Peritoneal adhesions (postprocedural) (postinfection); R60.0 Localized edema; R73.03 Prediabetes; G47.30 Sleep apnea, unspecified; I10 Essential (primary) hypertension; Z68.41 Body mass index [BMI] 40.0-44.9, adult; Z20.822 Contact with and (suspected) exposure to COVID-19; Z99.89 Dependence on other enabling machines and devices; Z79.899 Other long term (current) drug therapy
CPT/HCPCS: 36415; 80048; 80053; 80061; 83036; 83525; 84443; 85014; 85018; 85025; 85610; 85730; 86140; 86850; 86900; 86901; 87635; 88307; 88342; 99024; A4649; J0131; J0690; J1100; J1170; J2250; J2405; J3010

== ENCOUNTER → 2021-02-02 08:01 | Outpatient (BNVA) | payer OTHER, MEDICAID, SELFPAY | PROVIDERS: PCP Internal Medicine; Visit Provider Surgery ==

== ENCOUNTER 2021-02-12 11:58 | Emergency (ER) | payer OTHER, MEDICAID, SELFPAY ==
[2021-02-12 12:09] VITALS: BP 130/90; PULSE 86; RESP 18; TEMP 36.5; O2SAT 95; BMI 38.2
--- NOTE | 2021-02-12 13:44 | ED_ITS ---
HPI - General Adult General Chief complaint: Allergic Reaction Stated complaint: rash Source: patient Mode of arrival: ambulatory Limitations: no limitations History of Present Illness HPI narrative: Patient presents to ED for itchy rash comes and goes since Friday. Patient states after coming from the garage she started having itchy rash on arms, chest, legs, abdomen. Denies ever having swelling of lips, ton britt, sensation of throat closing, or shortness of breath. Related Data Home Medications Medication Instructions Recorded Confirmed hydrochlorothiazide 25 mg tablet 25 mg PO DAILY 11/23/20 01/24/21 lisinopril 20 mg tablet 20 mg PO DAILY 11/23/20 01/24/21 Previous Rx's Medication Instructions Recorded sucralfate 100 mg/mL oral 10 ml PO BID #400 ml 01/24/21 suspension diphenhydramine HCl [Benadryl] 25 mg PO TID PRN #30 cap 02/12/21 famotidine [Pepcid] 20 mg PO BID #20 tab 02/12/21 prednisone 60 mg PO DAILY 5 Days #15 tab 02/12/21 Allergies Allergy/AdvReac Type Severity Reaction Status Date / Time No Known Allergies Allergy Verified 02/02/21 08:08 Review of Systems Review of Systems: Yes all other systems are reviewed and are negative Constitutional: Constitutional: Reports as per HPI and Reports no additional constitutional complaints Eyes: Eyes: Reports as per HPI and Reports no additional eye complaints ENT: Reports system reviewed and no additional complaints, except as documented and Reports as per HPI Cardiovascular: Cardiovascular: Reports as per HPI and Reports no additional cardiovascular complaints Respiratory: Respiratory: Reports as per HPI and Reports no additional respiratory complaints Gastrointestinal: Gastrointestinal: Reports as per HPI and Reports no additional gastrointestinal complaints Genitourinary: Genitourinary: Reports no additional male genitourinary complaints and Reports as per HPI Musculoskeletal: Musculoskeletal: Reports no additional musculoskeletal complaints and Reports as per HPI Comments: Itchy rash skin Neurologic: Reports system reviewed and no additional complaints, except as documented and Reports as per HPI Psychiatric: Psychiatric: Reports no additional psychiatric complaints and Reports as per HPI [facility] Past Medical History Medical History Back pain COVID-19 vaccine series completed Depression GERD (gastroesophageal reflux disease) H. pylori infection Hepatomegaly Hypertension Liver fibrosis Lower extremity edema Morbid obesity Sleep apnea with use of continuous positive airway pressure (CPAP) Steatosis, liver Umbilical hernia Vitamin D deficiency Surgical History History of lymph node excision Social History Social History Are you a primary overnight caregiver to a significant other at home: No Do you presently have visiting nurse or other home services: No Alcohol intake: never Patient Tobacco Use Status: Never used Tobacco Advance Directives: Yes Advance Directives Information Provided: No Advance Directives on File: No service: No Current occupational status: employed Physical Exam Vital Signs: Vital Signs: Last Vital Signs Temp 97.7 F 02/12/21 12:09 Pulse 86 02/12/21 12:09 Resp 18 02/12/21 12:09 BP 130/90 H 02/12/21 12:09 Pulse Ox 95 02/12/21 12:09 Body Mass Index 38.2 Const: General: cooperative, healthy appearing, comfortable, no acute distress, well developed, alert, awake and Physically active Orientation/consciousness: patient oriented x3 HENMT: Other: Oral exam negative for tongue swelling, throat swelling, uvula swelling, drooling, or oral abscess Head: Yes normal to inspection, Yes No palpable skull fracture present, Yes normocephalic and Yes atraumatic Eyes: General: appearance normal, both eyes and all related structures Neck: Neck: Yes normal visual inspection, Yes full ROM, Yes no lymphadenopathy, Yes no meningeal signs, Yes trachea midline, Yes supple and No tender Chest: Other: Upper chest positive for hives Chest palpation & inspection: normal inspection of the chest and normal palpation of entire chest wall Resp: Effort & Inspection: normal respiratory effort and able to speak in complete sentences Auscultation: clear to auscultation bilaterally Cardio: Jugular venous distension: no JVD Heart sounds: S1 normal heart sound present and S2 normal heart sound present GI: Inspection: Yes normal to inspection and No abdominal wall ecchymosis Palpation (GI): Soft to palpation, not firm, nontender, no guarding and not rigid : General: No CVA tenderness and Yes no CVA tenderness Back/Spine/Pelvis: Back: no CVA tenderness, No CVA tenderness and No back tenderness Skin: General skin exam: no rashes or lesions noted and elasticity normal Neuro: General: patient oriented x3, no meningeal signs and CN's II-XI intact bilaterally Cranial nerves: Yes CN's II-XII intact bilaterally Extrem: Other: Positive for hives on bilateral upper extremity Psych: Appearance: grossly normal, well kempt and not disheveled Course Course Course Narrative: History physical exam in gown allergic reaction. Reevaluation(s) Reevaluation #1: Patient to be discharged on Benadryl, Pepcid, prednisone. Patient not in distress Time: 13:40 Medical Decision Making MDM Narrative Medical decision making narrative: Allergic reaction Discharge Plan Discharge Clinical Impression: Allergic reaction, Urticaria Patient Disposition: Home, Self-Care Instructions: General Allergic Reaction (ED) Additional Instructions: Return to the ED for shortness of breath, swelling of tongue, swelling of lips, sensation of throat closing, fever, chills, worsening rash, chest pain, or any other concerning symptoms. Please follow up with PCP Prescriptions: New famotidine [Pepcid] 20 mg tablet 20 mg PO BID Qty: 20 RF: 0 diphenhydramine HCl [Benadryl] 25 mg capsule 25 mg PO TID PRN (Reason: itching) Qty: 30 RF: 0 prednisone 20 mg tablet 60 mg PO DAILY 5 Days Qty: 15 RF: 0 No Action sucralfate 100 mg/mL suspension 10 ml PO BID Qty: 400 RF: 2 hydrochlorothiazide 25 mg tablet 25 mg PO DAILY RF: 0 Hold Instructions: Discuss when to restart with Dr Swift lisinopril 20 mg tablet 20 mg PO DAILY RF: 0 Interventions: ED Discharge Assessment Last Done: 02/12/21 14:04 Discharge Date/Time: 02/12/21 14:05 Print Language: R[place]
== END 2021-02-12 14:05 | disposition home or self-care (01) ==
PROVIDERS: Emergency Provider Emergency Medicine; PCP Internal Medicine
DX: L50.0 Allergic urticaria (principal); I10 Essential (primary) hypertension; Z79.899 Other long term (current) drug therapy
CPT/HCPCS: 99283

== ENCOUNTER → 2021-03-02 07:41 | Outpatient (BNVA) | payer OTHER, MEDICAID, SELFPAY | PROVIDERS: PCP Internal Medicine; Visit Provider Surgery ==

== ENCOUNTER → 2021-03-20 10:00 | Outpatient (BNVA) | payer OTHER, MEDICAID, SELFPAY | PROVIDERS: PCP Internal Medicine; Visit Provider Internal Medicine Pulmonary Disease ==

== ENCOUNTER → 2021-05-04 08:08 | Outpatient (BNVA) | payer OTHER, MEDICAID, SELFPAY | PROVIDERS: PCP Internal Medicine; Visit Provider Physician Assistant Surgical ==

== ENCOUNTER → 2021-05-23 15:46 | Outpatient (REF) | payer OTHER, MEDICAID, SELFPAY | LOC: HO.SL 15:46 | PROVIDERS: PCP Internal Medicine; Visit Provider Internal Medicine Pulmonary Disease | DX: G47.33 Obstructive sleep apnea (adult) (pediatric) (principal) | CPT/HCPCS: 95806 ==

== ENCOUNTER → 2021-05-31 15:18 | Outpatient (BNVA) | payer OTHER, MEDICAID, SELFPAY | PROVIDERS: PCP Internal Medicine; Visit Provider Internal Medicine Pulmonary Disease ==

== ENCOUNTER → 2021-06-01 08:45 | Outpatient (BNVA) | payer OTHER, MEDICAID, SELFPAY | PROVIDERS: PCP Internal Medicine; Referring Provider Internal Medicine; Visit Provider Physician Assistant Surgical ==

== ENCOUNTER → 2021-06-27 08:04 | Outpatient (BNVA) | payer OTHER, MEDICAID, SELFPAY | PROVIDERS: PCP Internal Medicine; Visit Provider Physician Assistant Surgical ==

== ENCOUNTER 2021-07-24 15:04 | Outpatient (REF) | payer OTHER, MEDICAID, SELFPAY ==
[2021-07-24 15:34] LABS: MANUAL DIFF FLAG NO
[2021-07-24 16:03] LABS: Basophils Percent Auto 0.2 % (0-2); Eosinophils Absolute Auto 0.1 X10*3/uL (0.0-0.4); Eosinophils Percent Auto 1.3 % (0-4); Hematocrit 41.4 % (42.0-52.0); Hemoglobin 13.4 g/dl (14.0-18.0); Imm Gran Abs Auto 0.02 X10*3/uL (0.00-0.03); Imm Gran Pct Auto 0.3 % (0.0-0.4); Lymphocytes Absolute Auto 1.9 X10*3/uL (1.2-4.9); Lymphocytes Percent Auto 31.3 % (20-40); Mean Corpuscular HGB Conc 32.4 g/dl (31.0-36.0); Mean Corpuscular Hemoglobin 29.1 pg (27.0-33.0); Mean Platelet Volume 10.2 fL (9.4-12.4); Monocytes Absolute Auto 0.5 X10*3/uL (0.1-1.2); Monocytes Percent Auto 8.4 % (2-11); Neutrophils Absolute Auto 3.5 x10*3/uL (2.0-8.3); Neutrophils Percent Auto 58.5 % (45-73); Platelet Count 247 X10*3/uL (160-400); Red Cell Distribution Width 13.9 % (11.0-16.0); White Blood Count 5.9 X10*3/uL (4.8-10.8)
[2021-07-24 16:16] LABS: Estimated Average Glucose 105 mg/dL; Hemoglobin A1c % 5.3 %
[2021-07-24 16:30] LABS: Alanine Aminotransferase 14 U/L (0-40); Albumin Level 4.2 g/dL (3.5-5.0); Alkaline Phosphatase 72 U/L (39-117); Anion Gap 13 (12-20); Aspartate Amino Transferase 15 U/L (5-37); Bilirubin Total 0.5 mg/dL (0.0-1.0); Blood Urea Nitrogen 10 mg/dL (9-16); C Reactive Protein 0.06 mg/dL (< or = 0.50); Calcium 9.7 mg/dL (8.4-10.2); Carbon Dioxide 27 mmol/L (22-29); Chloride 104 mmol/L (96-108); Cholesterol 136 mg/dL; Estimated Glomerular Filt Rate > 60; Glucose Random 84 mg/dL (60-115); HDL Cholesterol 39 mg/dL; Iron 90 mcg/dL (45-160); LDL Cholesterol Calculated 85 mg/dl; Percent Iron Saturation 27 % (15-50); Potassium 4.1 mmol/L (3.3-5.1); Sodium 140 mmol/L (135-145); Total Iron Binding Capacity 329 mcg/dL (228-428); Total Protein 6.7 g/dL (6.5-8.0); Triglycerides 61 mg/dL; Unsaturated Iron Binding 239 ug/dL
[2021-07-24 16:51] LABS: Ferritin 107 ng/mL (20-250); TSH reflex Free T4 1.36 uIU/mL (0.32-4.0); Vitamin D 25-OH Total 40.7 ng/mL (>30)
[2021-07-24 17:04] LABS: Folate 14.4 ng/mL (> or = 4.0); Vitamin B12 493 pg/mL (200-900)
[2021-07-25 13:41] LABS: Calcium (PTHI) 9.5 mg/dL (8.6-10.3); PTHI 45 pg/mL (14-64)
[2021-07-26 22:46] LABS: Zinc 66 mcg/dL (60-130)
[2021-07-27 14:26] LABS: Vitamin B1 16 nmol/L (8-30)
[2021-07-29 01:01] LABS: Vitamin A 38 mcg/dL (38-98)
== END 2021-07-24 15:05 | disposition home or self-care (01) ==
LOC: HO.LAB 15:04
PROVIDERS: Visit Provider Physician Assistant Surgical
DX: E66.9 Obesity, unspecified (principal); E55.9 Vitamin D deficiency, unspecified
CPT/HCPCS: 36415; 80053; 80061; 82306; 82607; 82728; 82746; 83036; 83540; 83970; 84425; 84443; 84590; 84630; 85025; 86140

== ENCOUNTER → 2021-07-27 08:12 | Outpatient (BNVA) | payer OTHER, MEDICAID, SELFPAY | PROVIDERS: PCP Internal Medicine; Visit Provider Physician Assistant Surgical ==

== ENCOUNTER → 2021-09-03 08:00 | Outpatient (BNVA) | payer OTHER, MEDICAID, SELFPAY | PROVIDERS: PCP Internal Medicine; Visit Provider Physician Assistant Surgical ==

== ENCOUNTER 2022-03-31 21:31 | Emergency (ER) | payer OTHER, MEDICAID, SELFPAY ==
[2022-03-31 22:23] VITALS: BP 127/69; PULSE 85; RESP 18; TEMP 37.8; O2SAT 100; BMI 28.3
--- NOTE | 2022-04-01 05:06 | ED_ITS ---
HPI - Skin/Abscess/Foreign Bdy General Chief complaint: Skin/Abscess/Foreign Body Stated complaint: leg swollen, infection Time Seen by Provider: 04/01/22 04:41 Source: patient Mode of arrival: ambulatory Limitations: no limitations History of Present Illness HPI narrative: 37-year-old male who presents emergency department for evaluation of cellulitis/early abscess of the right groin area. Patient states that 3 days prior he noted an area of redness and a small pimple in the right groin area. He states the pimple popped and drained pus. States since that time the area is gotten larger. He states that the area is painful to the touch and is hard. He states he has been feeling weak and fatigued. He also had a fever of 100.8 degrees F at home. complaint: abscess/boil Onset (ago): day(s) (3) Severity: moderate Severity scale (1-10): 5 Quality: aching Pain Consistency: constant Relieving factors: none Exacerbating factors: none Context: none Associated symptoms: fever and malaise Treatments prior to arrival: none Related Data Previous Rx's Medication Instructions Recorded cholecalciferol (vitamin D3) 125 125 mcg PO DAILY #30 caps 07/12/21 mcg (5,000 unit) capsule clotrimazole 1 % topical cream 1 appl topical BID #30 grams 09/03/21 (Antifungal (clotrimazole)) cephalexin 500 mg capsule 500 mg PO QID 7 days #28 caps 04/01/22 ibuprofen 600 mg tablet 600 mg PO Q6H PRN pain #30 tabs 04/01/22 Allergies Allergy/AdvReac Type Severity Reaction Status Date / Time No Known Allergies Allergy Verified 06/01/21 08:58 Review of Systems Review of Systems: Yes all other systems are reviewed and are negative PMFSH Past Medical History Medical History Back pain COVID-19 vaccine series completed Depression GERD (gastroesophageal reflux disease) H. pylori infection Hepatomegaly Hypertension Liver fibrosis Lower extremity edema Morbid obesity Steatosis, liver Umbilical hernia Vitamin D deficiency Surgical History History of lymph node excision Family History Family History Mother Hypertension Father No problems noted. Brother No problems noted. Brother No problems noted. Sister No problems noted. Social History Social History Are you a primary healthcare technician to a significant other at home: No Do you presently have visiting nurse or other home services: No Alcohol intake: never Patient Tobacco Use Status: Never used Tobacco Advance Directives: No Advance Directives Information Provided: Yes service: No Current occupational status: employed Physical Exam Vital Signs: Vital Signs: Last Vital Signs Temp 100.0 F 03/31/22 22:23 Pulse 85 03/31/22 22:23 Resp 18 03/31/22 22:23 BP 127/69 03/31/22 22:23 Pulse Ox 100 03/31/22 22:23 O2 Del Method 03/31/22 22:23 BMI result Body Mass Index 28.3 Const: Other: Awake, alert, male patient, very pleasant cooperative, no distress Orientation/consciousness: oriented to person and oriented to place HEENT: Head: Yes normocephalic and Yes atraumatic Resp: Effort & Inspection: normal respiratory effort Skin: Other: The patient has a 3 cm early abscess to the right inner thigh, there is over lying erythema which is warm to the touch, the area is indurated but not flocculent. Neuro: General: oriented to person and oriented to place Course Course Course Narrative: 37-year-old male who presents emergency department for evaluation a right inner thigh early abscess/cellulitis x3 days. The area is indurated and not flocculent. I did attempt a needle aspiration without any success therefore do not think that this early abscesses to be incised and drained at this point. I did discuss this with him. Patient was started on Keflex 500 mg 4 times a day for 7 days. He was also started on ibuprofen 600 mg 3 times a day as needed for pain. He was given printed and verbal instructions discharged home. Procedures Abscess I/D Site: other (Right inner thigh) Side (if applicable): right Local Anesthetic: lidocaine 2% and with epi Amount of anesthesia used (mL): 4 Technique: needle aspiration Amount of fluid expressed (mL): 0 Packing used?: none Discharge Plan Discharge Clinical Impression: Cellulitis Patient Disposition: Home, Self-Care Instructions: Abscess (ED) Additional Instructions: Cellulitis Discharge Instructions You have an infection of your skin. This is called cellulitis. This is usually caused by bacteria on your skin that gets under your skin and then causes the infection Take Keflex 500 mg pills, 1 pill 4 times a day for 1 week. This is an antibiotic that should help your body fight off the infection. Keep the area of cellulitis elevated to help reduce swelling in the infected area and this helps with the healing process Also apply a heating pad on low or a warm compress for 15 minutes, 4-6 times a day. This will increase the blood flow to the area and will bring white blood c ells to the area which will help your body fight off the infection. Take Motrin(ibuprofen) 600 mg pills, 1 pills every 6 hours as needed for pain. Also take Tylenol( acetaminophen) 325 mg pills, 2 pills every 4 hours as needed for pain. I was unable to drain any pus out the swollen area when I put a needle in to the swollen area. Sometimes, if the area becomes soft and filled with pus, it may need to be drained to help healing process. Other signs of worsening infection include fever, chills, weakness, increased pain, increased redness, increased swelling or red streaks going away from the area of infection. If you develop any of these symptoms or any other symptoms that are concerning to you, see your doctor immediately or return to the Emergency Department. Follow up with your doctor in 3 days for a recheck Please read the other printed instructions that we printed for you. Please see the work note Prescriptions: New cephalexin 500 mg capsule 500 mg PO QID 7 Days Qty: 28 0RF ibuprofen 600 mg tablet 600 mg PO Q6H PRN (Reason: pain) Qty: 30 0RF No Action cholecalciferol (vitamin D3) 125 mcg (5,000 unit) capsule 125 mcg PO DAILY Qty: 30 0RF clotrimazole [Antifungal (clotrimazole)] 1 % cream 1 appl topical BID Qty: 30 3RF Stand Alone Forms: Work/School Release
[2022-04-01] MEDS: cephALEXin 500 MG CAPSULE PO (05:49)
[2022-04-01] MEDS: Ibuprofen 600 MG TABLET PO (05:49)
[2022-04-01 06:09] LABS: Basophils Percent Auto 0.2 % (0-2); Eosinophils Percent Auto 0.4 % (0-4); Hemoglobin 13.8 g/dl (14.0-18.0); Imm Gran Abs Auto 0.04 X10*3/uL (0.00-0.03); Imm Gran Pct Auto 0.4 % (0.0-0.4); Lymphocytes Absolute Auto 1.7 X10*3/uL (1.2-4.9); Lymphocytes Percent Auto 15.8 % (20-40); MANUAL DIFF FLAG NO; Mean Corpuscular HGB Conc 32.9 g/dl (31.0-36.0); Mean Corpuscular Hemoglobin 29.1 pg (27.0-33.0); Mean Corpuscular Volume 88.6 fL (80.0-98.0); Mean Platelet Volume 9.5 fL (9.4-12.4); Monocytes Absolute Auto 1.1 X10*3/uL (0.1-1.2); Neutrophils Absolute Auto 7.7 x10*3/uL (2.0-8.3); Neutrophils Percent Auto 73.2 % (45-73); Platelet Count 203 X10*3/uL (160-400); Red Blood Count 4.74 X10*6/uL (4.60-5.80); Red Cell Distribution Width 13.4 % (11.0-16.0); White Blood Count 10.5 X10*3/uL (4.8-10.8)
[2022-04-01 06:25] LABS: Alanine Aminotransferase 13 U/L (0-40); Albumin Level 4.3 g/dL (3.5-5.0); Alkaline Phosphatase 67 U/L (39-117); Anion Gap 13 (12-20); Aspartate Amino Transferase 15 U/L (5-37); Bilirubin Total 1.3 mg/dL (0.0-1.0); Blood Urea Nitrogen 9 mg/dL (9-16); Carbon Dioxide 27 mmol/L (22-29); Chloride 101 mmol/L (96-108); Creatinine Clr Calc Pharmacy 140.4; Estimated Glomerular Filt Rate > 60; Glucose Random 97 mg/dL (60-115); Sodium 137 mmol/L (135-145); Total Protein 6.9 g/dL (6.5-8.0)
== END 2022-04-01 06:11 | disposition home or self-care (01) ==
PROVIDERS: Emergency Provider Emergency Medicine Emergency Medical Services
DX: L03.115 Cellulitis of right lower limb (principal); L02.415 Cutaneous abscess of right lower limb; R50.9 Fever, unspecified; I10 Essential (primary) hypertension; Z98.84 Bariatric surgery status
CPT/HCPCS: 10060; 10160; 36415; 80053; 85025; 99283; 99284

== ENCOUNTER 2022-04-03 11:12 | Emergency (ER) | payer OTHER, MEDICAID, SELFPAY ==
[2022-04-03 11:20] VITALS: BP 147/82; PULSE 72; RESP 18; TEMP 36.9; O2SAT 99; BMI 28.8
[2022-04-03] MEDS: Lidocaine HCl 1 % MPF 2 ML VIAL INFILTRATI ×3 (12:29)
--- NOTE | 2022-04-03 12:48 | ED.RECABL ---
HPI - Recheck/Abnormal Lab/Rx General Chief Complaint: Skin/Abscess/Foreign Body Stated Complaint: r leg infection Time Seen by Provider: 04/03/22 11:40 Source: patient Mode of arrival: ambulatory Limitations: no limitations History of Present Illness HPI narrative: 37-year-old male presenting to the ED with complaints of needing his abscess to his right inner thigh opened after he was seen here on 04/01/2022 and sent home with Keflex 500 mg every 6 hours for a cellulitis possible abscess to the right groin area. Apparently they performed a needle aspiration and there was no purulent drainage and they reported that the abscess was not ready and sent him home with antibiotics and Motrin along with instructions for warm soaks. Patient reports that he has been using warm soaks and this morning had an intense pain to the right inner thigh groin area and he noticed some purulent discharge. He reports he is taking the Keflex as prescribed. He is also taking the Motrin every 6 hours as prescribed. He is still having fevers up to 101.3. He denies any history of MRSA or any other symptoms complaints or concerns at this time. MD complaint: wound re-check Initial visit (ago): day(s) (2) Initial visit for: cellulitis and abscess Returns today for: cellulitis follow-up Symptoms since prior visit: no new symptoms Context: planned re-check Associated symptoms: fever and chills Treatments prior to arrival: other (See above) Related Data Previous Rx's Medication Instructions Recorded cholecalciferol (vitamin D3) 125 125 mcg PO DAILY #30 caps 07/12/21 mcg (5,000 unit) capsule clotrimazole 1 % topical cream 1 appl topical BID #30 grams 09/03/21 (Antifungal (clotrimazole)) cephalexin 500 mg capsule 500 mg PO QID 7 days #28 caps 04/01/22 ibuprofen 600 mg tablet 600 mg PO Q6H PRN pain #30 tabs 04/01/22 doxycycline monohydrate 100 mg 100 mg PO BID 10 days #20 tabs 04/03/22 tablet ibuprofen 800 mg tablet 800 mg PO Q8H PRN pain #14 tabs 04/03/22 oxycodone 5 mg tablet 5 mg PO Q6H PRN pain #14 tabs 04/03/22 Allergies Allergy/AdvReac Type Severity Reaction Status Date / Time No Known Allergies Allergy Verified 04/03/22 11:20 Review of Systems Review of Systems: Constitutional : Denies history of same, Denies any other sites involved, Denies IV drug use, Denies history of MRSA, Denies swollen glands, Denies injury, Denies Fever, Denies Chills, + Sig Pain, Denies Systemic symptoms Cardiovascular : No Chest Pain, No SOB Respiratory : No Dyspnea Gastrointestinal : No abdominal pain Musculoskeletal : No Joint Swelling Skin : + abscess with surrounding erythema with discharge, No skin laceration, No Foreign bodies, No spreading rash, Denies bites Neuro : No Weakness, No Numbness/tingling Psych : No SI/HI/thoughts of self injury Yes all other systems are reviewed and are negative [facility] Past Medical History Attestation statement: The following information was validated with the patient. Source: old records reviewed and nursing notes reviewed Medical History Back pain COVID-19 vaccine series completed Depression GERD (gastroesophageal reflux disease) H. pylori infection Hepatomegaly Hypertension Liver fibrosis Lower extremity edema Morbid obesity Steatosis, liver Umbilical hernia Vitamin D deficiency Surgical History History of lymph node excision Family History Family History Mother Hypertension Father No problems noted. Brother No problems noted. Brother No problems noted. Sister No problems noted. Social History Social History Are you a primary career and transition teacher to a significant other at home: No Do you presently have visiting nurse or other home services: No Alcohol intake: never Patient Tobacco Use Status: Never used Tobacco Advance Directives: No Advance Directives Information Provided: No service: No Current occupational status: employed Physical Exam Vital Signs: Vital Signs: Last Vital Signs Temp 98.4 F 04/03/22 11:20 Pulse 72 04/03/22 11:20 Resp 18 04/03/22 11:20 BP 147/82 H 04/03/22 11:20 Pulse Ox 99 04/03/22 11:20 O2 Del Method 04/03/22 11:20 BMI result Body Mass Index 28.8 vital signs have been reviewed as normal and appeared to be correct. Blood pressure normal Heart rate normal. Respiration rate normal. Temperature normal. Oxygen saturation normal. Appearance: Alert. Oriented X3. No acute distress. Head: Normal external exam. Normocephalic. Atraumatic. Eyes: PERRLA. EOMI. Conjunctiva and sclera normal. Eyelids normal. ENT: Pharynx normal. Uvula midline. Moist mucous membranes. Neck: Normal inspection. Neck supple. FROM. CVS: Normal heart rate and rhythm. Respiratory: No respiratory distress. Painless inspiration. Skin: Skin warm and dry. Normal skin color. Normal skin turgor. Patient with abscess/fluctuant area to right inner thigh/groin area with moderate surrounding erythema and purulent drainage noted. No additional rashes/lesions/lacerations noted. Extremities: Extremities exhibit normal range of motion. Extremities nontender. Neuro: Oriented X 3. No motor deficit. No sensory deficit. Reflexes normal. Normal steady gait. No focal neuro deficits noted. Vascular: + radial pulses/+ 2 distal pedal pulses/+2 dorsalis pedis b/l. Normal cap refill. No cyanosis noted to upper extremity nails and lower extremity toes nails. Course Course Course Narrative: IMP/Plan: abscess. No systemic toxicity, and pt looks well. + surrounding cellulitis. Not c/w nec fasc/ myositis/ DVT/ osteomyelitis. patient now status post I&D of abscess and patient tolerated procedure well. No complications. No labs or imaging indicated at this time. I do not believe the patient failed treatment as patient did not have an abscess 2 days ago for the abscess was not ready at that time and he is here for I&D of the actual abscess which is ready at this time despite the patient having fevers I will not do any labs or imaging will DC home with adding doxycycline for 10 days and instructing patient to continue Keflex and to return in 2-3 days if fevers continue or any worsening symptoms. Patient understands agrees with this plan. MDM - Recheck/Abnormal Lab/Rx Medical Records Attestation: I reviewed the patient's medical records. Procedures Abscess I/D Site: lower extremity (inner thigh/groin area) Side (if applicable): right Local Anesthetic: lidocaine 1% Amount of anesthesia used (mL): 6 Technique: incised with blade Amount of fluid expressed (mL): 8 Sent for culture/gram staining?: No Irrigation: Yes Packing used?: none Complications: other (No complications) Discharge Plan Discharge Clinical Impression: Abscess of right thigh, Cellulitis of right thigh Patient Disposition: Home, Self-Care Instructions: Cellulitis (ED), Abscess Incision and Drainage (DC) Prescriptions: New doxycycline monohydrate 100 mg tablet 100 mg PO BID 10 Days Qty: 20 0RF ibuprofen 800 mg tablet 800 mg PO Q8H PRN (Reason: pain) Qty: 14 0RF oxycodone 5 mg tablet 5 mg PO Q6H PRN (Reason: pain) Qty: 14 0RF Rx Instructions: Partial Fill upon patient request. No Action cholecalciferol (vitamin D3) 125 mcg (5,000 unit) capsule 125 mcg PO DAILY Qty: 30 0RF cephalexin 500 mg capsule 500 mg PO QID 7 Days Qty: 28 0RF ibuprofen 600 mg tablet 600 mg PO Q6H PRN (Reason: pain) Qty: 30 0RF clotrimazole [Antifungal (clotrimazole)] 1 % cream 1 appl topical BID Qty: 30 3RF Referrals: Frannie Chandra MD [Primary Care Provider] - 2 days Stand Alone Forms: Work/School Release Interventions: ED Discharge Assessment Last Done: 04/03/22 13:02 Discharge Date/Time: 04/03/22 13:03
== END 2022-04-03 13:03 | disposition home or self-care (01) ==
PROVIDERS: Emergency Provider Internal Medicine; PCP Internal Medicine
DX: L02.415 Cutaneous abscess of right lower limb (principal); L03.115 Cellulitis of right lower limb; M79.651 Pain in right thigh
CPT/HCPCS: 10060; 99283; 99284

== ENCOUNTER 2022-12-06 11:52 | Inpatient (IN) | payer OTHER, MEDICAID, SELFPAY ==
--- NOTE | ~2022-12-06 | CT_ITS ---
EXAMINATION: CT PELVIS WITH CONTRAST CLINICAL INFORMATION: Buttocks/perirectal abscess COMPARISON: Ultrasound abdomen earlier today TECHNIQUE: Helical scanning was performed with submillimeter collimation through the pelvis with the use of oral contrast and during bolus intravenous injection of 100 mL of Omnipaque 350 intravenous contrast. Sagittal and coronal multiplanar 2-D reconstructions were obtained. This CT examination was performed using dose optimization techniques as appropriate, variously including the following: *Automated exposure control *Adjustment of mA and/or kV according to patient size (this includes techniques or standardized protocols for targeted exams where dose is matched to indication/reason for exam; i.e. extremities or head) *Use of iterative reconstruction technique DLP: 3:30 mGy-cm FINDINGS: A tiny periumbilical hernia is partially visualized. Prostate and seminal vesicles appear normal as does the bladder. The visualized bowel is unremarkable. No perirectal abscess is seen. There is a poorly defined nonencapsulated soft tissue/fluid collection seen in the left buttock cheek measuring 7.1 x 1.8 x 3.1 cm. No discrete drainable collection seen. No air is present in the subcutaneous tissues. Osseous structures are unremarkable. CT/CT pelvis w IV con IMPRESSION: Soft tissue/fluid collection in the left buttock cheek as described above. No perirectal abscess is seen.
[2022-12-06 12:31] VITALS: BP 119/79; PULSE 93; RESP 18; TEMP 38.9; O2SAT 97; BMI 31.5
--- NOTE | 2022-12-06 12:34 | ED.GENADULT ---
HPI - General Adult General Chief complaint: Fever <HOOD Haskins - Last Filed: 12/06/22 12:35> Stated complaint: High Fever ? Infection <HOOD Haskins - Last Filed: 12/06/22 12:35> Time Seen by Provider: 12/06/22 23:45 <HOOD Haskins - Last Filed: 12/06/22 12:35> Source: patient <Tanya Shahid MD - Last Filed: 12/07/22 01:46> Mode of arrival: ambulatory <Tanya Shahid MD - Last Filed: 12/07/22 01:46> Limitations: no limitations <Tanya Shahid MD - Last Filed: 12/07/22 01:46> History of Present Illness HPI narrative: Patient comes to the emergency room complaining of an abscess in the left buttocks. Patient states it has been present for almost 5 days now, gradually getting better. Now patient has a fever. Patient states that he has had multiple abscesses drained from his legs in the past. Patient denies seeing any drainage from the affected area. <Tanya Shahid MD - Last Filed: 12/07/22 01:46> Related Data Home medications: Previous Rx's Medication Instructions Recorded clotrimazole 1 % topical cream 1 appl topical BID #30 grams 09/03/21 (Antifungal (clotrimazole)) cephalexin 500 mg capsule 500 mg PO QID 7 days #28 caps 04/01/22 ibuprofen 600 mg tablet 600 mg PO Q6H PRN pain #30 tabs 04/01/22 ibuprofen 800 mg tablet 800 mg PO Q8H PRN pain #14 tabs 04/03/22 <HOOD Haskins - Last Filed: 12/06/22 12:35> Allergies/adverse reactions: Allergies Allergy/AdvReac Type Severity Reaction Status Date / Time No Known Allergies Allergy Verified 05/06/22 15:16 <HOOD Haskins - Last Filed: 12/06/22 12:35> Review of Systems Review of Systems: Constitutional : No Weight loss, No Fever, No Chills, No Night Sweats, No Fatigue, No Malaise ENT/Mouth : No Hearing loss, No Ear Pain, No Nasal Congestion, No Sinus Pain, No Hoarseness, No sore throat, No Rhinorrhea, No Swallowing Difficulty Eyes: No Eye Pain, No Swelling, No Redness, No Foreign Body, No Discharge, No Vision Changes Cardiovascular : No Chest Pain, No SOB, No Dyspnea on Exertion, No Orthopnea, No Edema, No Palpitations Respiratory : No Cough, No Sputum, No Wheezing, No Smoke Exposure, No Dyspnea Gastrointestinal : No Nausea, No Vomiting, No Diarrhea, No Constipation, No abdominal Pain, No Hematochezia, No Melena Genitourinary : no irregular bleeding, No Dysuria, No Urinary Frequency, No Hematuria, No Urinary Incontinence, No Urgency, No Flank Pain, No Urinary Flow Changes, No Hesitancy Musculoskeletal : No joint pain, No Myalgias, No Joint Swelling Skin : Abscess in the left buttocks Neuro : No Weakness, No Numbness, No Paresthesias, No Loss of Consciousness, No Dizziness, No Headache Psych : No Anxiety/Panic, No Depression, No SI/HI/AH/VH, No Social Issues, Heme/Lymph: No Bruising, No Bleeding,No Lymphadenopathy Endocrine : No Polyuria, No Polydipsia, No Temperature Intolerance <Tnaya Shahid MD - Last Filed: 12/07/22 01:46> [facility] Past Medical History Medical History: Medical History Abscess of buttock, right Back pain COVID-19 vaccine series completed Depression GERD (gastroesophageal reflux disease) H. pylori infection Hepatomegaly Hypertension Liver fibrosis Lower extremity edema Morbid obesity Steatosis, liver Umbilical hernia Vitamin D deficiency <HOOD Haskins - Last Filed: 12/06/22 12:35> Surgical History: Surgical History History of lymph node excision <HOOD Haskins - Last Filed: 12/06/22 12:35> Family History Family History: Family History Mother Hypertension Father No problems noted. Brother No problems noted. Brother No problems noted. Sister No problems noted. <HOOD Haskins - Last Filed: 12/06/22 12:35> Social History Social History: Social History Are you a primary foster care therapist to a significant other at home: No Do you presently have visiting nurse or other home services: No Alcohol intake: never Patient Tobacco Use Status: Never used Tobacco Advance Directives: No Advance Directives Information Provided: No service: No Current occupational status: employed <HOOD Haskins - Last Filed: 12/06/22 12:35> Physical Exam ED Vital Signs: Vital Signs - 24 hr 12/06/22 12:31 12/06/22 20:27 12/06/22 23:08 Temperature 102.0 F H 100.8 F H 99.9 F Pulse Rate 93 96 86 Respiratory Rate 18 18 21 H Blood Pressure 119/79 124/72 120/72 Pulse Oximetry 97 96 96 Oxygen Delivery Method Room Air Room Air Room Air 12/07/22 01:10 Temperature 99.6 F Pulse Rate 82 Respiratory Rate 18 Blood Pressure 105/64 Pulse Oximetry 94 Oxygen Delivery Method Room Air BMI result Body Mass Index 31.5 <HOOD Haskins - Last Filed: 12/06/22 12:35> Vital Signs - 24 hr 12/06/22 12:31 12/06/22 20:27 12/06/22 23:08 Temperature 102.0 F H 100.8 F H 99.9 F Pulse Rate 93 96 86 Respiratory Rate 18 18 21 H Blood Pressure 119/79 124/72 120/72 Pulse Oximetry 97 96 96 Oxygen Delivery Method Room Air Room Air Room Air 12/07/22 01:10 Temperature 99.6 F Pulse Rate 82 Respiratory Rate 18 Blood Pressure 105/64 Pulse Oximetry 94 Oxygen Delivery Method Room Air BMI result Body Mass Index 31.5 <Tanya Shahid MD - Last Filed: 12/07/22 01:46> Const Other: Appearance: Alert. Oriented X3. No acute distress. Eyes: Pupils equal, round and reactive to light. ENT: Pharynx normal. Neck: Normal inspection. Neck supple. No lymph nodes noted. No crepitus CVS: Normal heart rate and rhythm. Pulses normal. Normal S1 and S2 Respiratory: No respiratory distress. Breath sounds normal. No Wheezing. No rales Abdomen: Soft and nontender. No rigidity. No distention. Skin: Skin warm and dry. Normal skin color. Normal skin turgor. On the left buttocks, patient has a 10 cm x 5 cm area of swelling. Bedside ultrasound does not show a collection of fluid. There is cobblestone pattern, likely indicating cellulitis Extremities: No lower extremity edema. No Lacerations. No Rash Neuro: Oriented X 3. No motor deficit. No sensory deficit. Moving all extremities. No slurred speech. CN 2 through 12 grossly intact Psych: calm, cooperative, normal affect <Tanya Shahid MD - Last Filed: 12/07/22 01:46> Course Course Course Narrative: RME performed by Soniya Porter PA-C. Patient is a 37 year old assigned male at presenting to the emergency department with fever, possible pilonidal abscess. Labs and swab ordered. Patient placed back in the waiting room pending room availability and results. <HOOD Haskins - Last Filed: 12/06/22 12:35> Medications Administered Discontinued Medications Generic Name Dose Route Start Last Admin Trade Name Freq PRN Reason Stop Dose Admin Acetaminophen 650 mg 12/06/22 21:44 12/06/22 21:48 Acetaminophen 325 Mg Tablet PO 12/06/22 21:45 650 mg ONCE ONE Administration Ibuprofen 600 mg 12/06/22 12:34 12/06/22 12:39 Ibuprofen 600 Mg Tablet PO 12/06/22 12:35 600 mg ONCE ONE Administration Iohexol 85 ml 12/07/22 00:17 12/07/22 00:17 Iohexol 350 Mg/Ml 100 Ml Infus..Btl IV 12/07/22 00:18 85 ml ONCE ONE Administration <HOOD Haskins - Last Filed: 12/06/22 12:35> Medications Administered Discontinued Medications Generic Name Dose Route Start Last Admin Trade Name Freq PRN Reason Stop Dose Admin Acetaminophen 650 mg 12/06/22 21:44 12/06/22 21:48 Acetaminophen 325 Mg Tablet PO 12/06/22 21:45 650 mg ONCE ONE Administration Ibuprofen 600 mg 12/06/22 12:34 12/06/22 12:39 Ibuprofen 600 Mg Tablet PO 12/06/22 12:35 600 mg ONCE ONE Administration Iohexol 85 ml 12/07/22 00:17 12/07/22 00:17 Iohexol 350 Mg/Ml 100 Ml Infus..Btl IV 12/07/22 00:18 85 ml ONCE ONE Administration <Tanya Shahid MD - Last Filed: 12/07/22 01:46> Medical Decision Making Medical Decision Making [facility] Narrative: -patient has a fever, white blood cell count 15. On bedside ultrasound it does not seem that there is a collection of fluid that could easily be drained. We will go ahead and order a CT scan of the pelvis -the induration is expanding towards the perineal area. Patient had a fever of 102, blood pressure stable, no episodes of hypotension, lactic acid pending. At this time, sepsis is not suspected. Patient will be empirically treated with Zosyn and vancomycin. -I discussed the patient with Dr. Estes, patient being admitted <Tanya Shahid MD - Last Filed: 12/07/22 01:46> Differential Diagnosis Differential Diagnoses: The differential diagnosis associated with the presentation includes (Cellulitis, abscess) <Tanya Shahid MD - Last Filed: 12/07/22 01:46> Admission/Observation Consideration of admission/observation: Escalation of care including admission/observation considered <Tanya Shahid MD - Last Filed: 12/07/22 01:46> Consult Healthcare Provider Management of the patient was discussed with: Hospitalist <Tanya Shahid MD - Last Filed: 12/07/22 01:46> Lab Data MDM Lab Attestation statement: I reviewed the patient's lab results. <Tanya Shahid MD - Last Filed: 12/07/22 01:46> Result Diagrams: 12/06/22 13:50 12/06/22 13:50 <HOOD Haskins - Last Filed: 12/06/22 12:35> Labs: Lab Results 12/06/22 12/06/22 12/06/22 Range/Units 13:50 13:50 13:50 WBC 15.8 H (4.8-10.8) X10*3/uL RBC 4.54 L (4.60-5.80) X10*6/uL Hgb 13.2 L (14.0-18.0) g/dl Hct 40.1 L (42.0-52.0) % MCV 88.3 (80.0-98.0) fL MCH 29.1 (27.0-33.0) pg MCHC 32.9 (31.0-36.0) g/dl RDW 13.6 (11.0-16.0) % Plt Count 207 (160-400) X10*3/uL MPV 9.7 (9.4-12.4) fL Immature Gran % (Auto) 0.6 H (0.0-0.4) % Neut % (Auto) 81.6 H (45-73) % Lymph % (Auto) 8.2 L (20-40) % [place] % (Auto) 9.2 (2-11) % Eos % (Auto) 0.3 (0-4) % Baso % (Auto) 0.1 (0-2) % Lymph # (Auto) 1.3 (1.2-4.9) X10*3/uL [place] # (Auto) 1.5 H (0.1-1.2) X10*3/uL Eos # (Auto) 0.0 (0.0-0.4) X10*3/uL Baso # (Auto) 0.0 (0.0-0.2) X10*3/uL Abs Immat Gran (auto) 0.10 H (0.00-0.03) X10*3/uL Absolute Neuts (auto) 12.9 H (2.0-8.3) x10*3/uL Absolute Nucleated RBC 0.000 (0.0-0.012) X10*3/uL Nucleated RBC % (auto) 0.0 (0.0-0.2) /100WBC Sodium 139 (135-145) mmol/L Potassium 3.9 (3.3-5.1) mmol/L Chloride 103 (96-108) mmol/L Carbon Dioxide 28 (22-29) mmol/L Anion Gap 12 (12-20) BUN 12 (9-16) mg/dL Creatinine 0.95 (0.5-1.4) mg/dL Estim Creat Clear Calc 126.0 Estimated GFR > 60 Random Glucose 122 H (60-115) mg/dL Lactic Acid (0.5-2.0) mmol/L Calcium 8.7 (8.4-10.2) mg/dL Magnesium 1.8 (1.6-2.6) mg/dL Total Bilirubin 1.3 H (0.0-1.0) mg/dL AST 12 (5-37) U/L ALT 10 (0-40) U/L Alkaline Phosphatase 62 (39-117) U/L Total Protein 6.4 L (6.5-8.0) g/dL Albumin 3.9 (3.5-5.0) g/dL COVID-19 (ROXY) Negative (Negative) COVID-19 Clin Com See Note 12/06/22 Range/Units 21:19 WBC (4.8-10.8) X10*3/uL RBC (4.60-5.80) X10*6/uL Hgb (14.0-18.0) g/dl Hct (42.0-52.0) % MCV (80.0-98.0) fL MCH (27.0-33.0) pg MCHC (31.0-36.0) g/dl RDW (11.0-16.0) % Plt Count (160-400) X10*3/uL MPV (9.4-12.4) fL Immature Gran % (Auto) (0.0-0.4) % Neut % (Auto) (45-73) % Lymph % (Auto) (20-40) % [place] % (Auto) (2-11) % Eos % (Auto) (0-4) % Baso % (Auto) (0-2) % Lymph # (Auto) (1.2-4.9) X10*3/uL [place] # (Auto) (0.1-1.2) X10*3/uL Eos # (Auto) (0.0-0.4) X10*3/uL Baso # (Auto) (0.0-0.2) X10*3/uL Abs Immat Gran (auto) (0.00-0.03) X10*3/uL Absolute Neuts (auto) (2.0-8.3) x10*3/uL Absolute Nucleated RBC (0.0-0.012) X10*3/uL Nucleated RBC % (auto) (0.0-0.2) /100WBC Sodium (135-145) mmol/L Potassium (3.3-5.1) mmol/L Chloride (96-108) mmol/L Carbon Dioxide (22-29) mmol/L Anion Gap (12-20) BUN (9-16) mg/dL Creatinine (0.5-1.4) mg/dL Estim Creat Clear Calc Estimated GFR Random Glucose (60-115) mg/dL Lactic Acid 1.2 (0.5-2.0) mmol/L Calcium (8.4-10.2) mg/dL Magnesium (1.6-2.6) mg/dL Total Bilirubin (0.0-1.0) mg/dL AST (5-37) U/L ALT (0-40) U/L Alkaline Phosphatase (39-117) U/L Total Protein (6.5-8.0) g/dL Albumin (3.5-5.0) g/dL COVID-19 (ROXY) (Negative) COVID-19 Clin Com <HOOD Haskins - Last Filed: 12/06/22 12:35> Lab Results 12/06/22 12/06/22 12/06/22 Range/Units 13:50 13:50 13:50 WBC 15.8 H (4.8-10.8) X10*3/uL RBC 4.54 L (4.60-5.80) X10*6/uL Hgb 13.2 L (14.0-18.0) g/dl Hct 40.1 L (42.0-52.0) % MCV 88.3 (80.0-98.0) fL MCH 29.1 (27.0-33.0) pg MCHC 32.9 (31.0-36.0) g/dl RDW 13.6 (11.0-16.0) % Plt Count 207 (160-400) X10*3/uL MPV 9.7 (9.4-12.4) fL Immature Gran % (Auto) 0.6 H (0.0-0.4) % Neut % (Auto) 81.6 H (45-73) % Lymph % (Auto) 8.2 L (20-40) % [place] % (Auto) 9.2 (2-11) % Eos % (Auto) 0.3 (0-4) % Baso % (Auto) 0.1 (0-2) % Lymph # (Auto) 1.3 (1.2-4.9) X10*3/uL [place] # (Auto) 1.5 H (0.1-1.2) X10*3/uL Eos # (Auto) 0.0 (0.0-0.4) X10*3/uL Baso # (Auto) 0.0 (0.0-0.2) X10*3/uL Abs Immat Gran (auto) 0.10 H (0.00-0.03) X10*3/uL Absolute Neuts (auto) 12.9 H (2.0-8.3) x10*3/uL Absolute Nucleated RBC 0.000 (0.0-0.012) X10*3/uL Nucleated RBC % (auto) 0.0 (0.0-0.2) /100WBC Sodium 139 (135-145) mmol/L Potassium 3.9 (3.3-5.1) mmol/L Chloride 103 (96-108) mmol/L Carbon Dioxide 28 (22-29) mmol/L Anion Gap 12 (12-20) BUN 12 (9-16) mg/dL Creatinine 0.95 (0.5-1.4) mg/dL Estim Creat Clear Calc 126.0 Estimated GFR > 60 Random Glucose 122 H (60-115) mg/dL Lactic Acid (0.5-2.0) mmol/L Calcium 8.7 (8.4-10.2) mg/dL Magnesium 1.8 (1.6-2.6) mg/dL Total Bilirubin 1.3 H (0.0-1.0) mg/dL AST 12 (5-37) U/L ALT 10 (0-40) U/L Alkaline Phosphatase 62 (39-117) U/L Total Protein 6.4 L (6.5-8.0) g/dL Albumin 3.9 (3.5-5.0) g/dL COVID-19 (ROXY) Negative (Negative) COVID-19 Clin Com See Note 12/06/22 Range/Units 21:19 WBC (4.8-10.8) X10*3/uL RBC (4.60-5.80) X10*6/uL Hgb (14.0-18.0) g/dl Hct (42.0-52.0) % MCV (80.0-98.0) fL MCH (27.0-33.0) pg MCHC (31.0-36.0) g/dl RDW (11.0-16.0) % Plt Count (160-400) X10*3/uL MPV (9.4-12.4) fL Immature Gran % (Auto) (0.0-0.4) % Neut % (Auto) (45-73) % Lymph % (Auto) (20-40) % [place] % (Auto) (2-11) % Eos % (Auto) (0-4) % Baso % (Auto) (0-2) % Lymph # (Auto) (1.2-4.9) X10*3/uL [place] # (Auto) (0.1-1.2) X10*3/uL Eos # (Auto) (0.0-0.4) X10*3/uL Baso # (Auto) (0.0-0.2) X10*3/uL Abs Immat Gran (auto) (0.00-0.03) X10*3/uL Absolute Neuts (auto) (2.0-8.3) x10*3/uL Absolute Nucleated RBC (0.0-0.012) X10*3/uL Nucleated RBC % (auto) (0.0-0.2) /100WBC Sodium (135-145) mmol/L Potassium (3.3-5.1) mmol/L Chloride (96-108) mmol/L Carbon Dioxide (22-29) mmol/L Anion Gap (12-20) BUN (9-16) mg/dL Creatinine (0.5-1.4) mg/dL Estim Creat Clear Calc Estimated GFR Random Glucose (60-115) mg/dL Lactic Acid 1.2 (0.5-2.0) mmol/L Calcium (8.4-10.2) mg/dL Magnesium (1.6-2.6) mg/dL Total Bilirubin (0.0-1.0) mg/dL AST (5-37) U/L ALT (0-40) U/L Alkaline Phosphatase (39-117) U/L Total Protein (6.5-8.0) g/dL Albumin (3.5-5.0) g/dL COVID-19 (ROXY) (Negative) COVID-19 Clin Com <Tanya Shahid MD - Last Filed: 12/07/22 01:46> Independent Interpretation I performed an independent interpretation of an: CT Scan (My interpretation of CT scan, no fluid collection, cellulitis present in the left buttocks) <Tanya Shahid MD - Last Filed: 12/07/22 01:46> Radiology Impression Discussion of test interpretation with radiology: I have reviewed the radiologist's reading. <Tanya Shahid MD - Last Filed: 12/07/22 01:46> Radiologist Impression: FINDINGS: A tiny periumbilical hernia is partially visualized. Prostate and seminal vesicles appear normal as does the bladder. The visualized bowel is unremarkable. No perirectal abscess is seen. There is a poorly defined nonencapsulated soft tissue/fluid collection? seen in the left buttock cheek measuring 7.1 x 1.8 x 3.1 cm. No discrete drainable collection seen. No air is present in the subcutaneous tissues. Osseous structures are unremarkable. CT/CT pelvis w IV con IMPRESSION: Soft tissue/fluid collection in the left buttock cheek as described above. No perirectal abscess is seen. <Tanya Shahid MD - Last Filed: 12/07/22 01:46> Critical Care Time Critical Care Time Critical Care Time: Yes <Tanya Shahid MD - Last Filed: 12/07/22 01:46> Total Critical Care Time: 60 <Tanya Shahid MD - Last Filed: 12/07/22 01:46> Attestation: I have personally provided critical care time. Time includes review of lab data, radiology results, discussion with consultants, and monitoring for potential decompensation. Intervention performed as documented. <Tanya Shahid MD - Last Filed: 12/07/22 01:46> Discharge Plan Discharge Clinical Impression: Cellulitis <HOOD Haskins - Last Filed: 12/06/22 12:35> Patient Disposition: Admitted As Inpatient <HOOD Haskins - Last Filed: 12/06/22 12:35> Prescriptions: No Action cephalexin 500 mg capsule 500 mg PO QID 7 Days Qty: 28 0RF ibuprofen 600 mg tablet 600 mg PO Q6H PRN (Reason: pain) Qty: 30 0RF ibuprofen 800 mg tablet 800 mg PO Q8H PRN (Reason: pain) Qty: 14 0RF clotrimazole [Antifungal (clotrimazole)] 1 % cream 1 appl topical BID Qty: 30 3RF <HOOD Haskins - Last Filed: 12/06/22 12:35>
[2022-12-06] MEDS: Ibuprofen 600 MG TABLET PO (12:39)
[2022-12-06 13:55] LABS: MANUAL DIFF FLAG NO
[2022-12-06 14:11] LABS: Basophils Percent Auto 0.1 % (0-2); Eosinophils Percent Auto 0.3 % (0-4); Hematocrit 40.1 % (42.0-52.0); Hemoglobin 13.2 g/dl (14.0-18.0); Imm Gran Pct Auto 0.6 % (0.0-0.4); Lymphocytes Absolute Auto 1.3 X10*3/uL (1.2-4.9); Lymphocytes Percent Auto 8.2 % (20-40); Mean Corpuscular HGB Conc 32.9 g/dl (31.0-36.0); Mean Corpuscular Hemoglobin 29.1 pg (27.0-33.0); Mean Corpuscular Volume 88.3 fL (80.0-98.0); Mean Platelet Volume 9.7 fL (9.4-12.4); Monocytes Absolute Auto 1.5 X10*3/uL (0.1-1.2); Monocytes Percent Auto 9.2 % (2-11); Neutrophils Absolute Auto 12.9 x10*3/uL (2.0-8.3); Neutrophils Percent Auto 81.6 % (45-73); Platelet Count 207 X10*3/uL (160-400); Red Blood Count 4.54 X10*6/uL (4.60-5.80); Red Cell Distribution Width 13.6 % (11.0-16.0); White Blood Count 15.8 X10*3/uL (4.8-10.8)
[2022-12-06 14:18] LABS: Alanine Aminotransferase 10 U/L (0-40); Albumin Level 3.9 g/dL (3.5-5.0); Alkaline Phosphatase 62 U/L (39-117); Anion Gap 12 (12-20); Aspartate Amino Transferase 12 U/L (5-37); Bilirubin Total 1.3 mg/dL (0.0-1.0); Blood Urea Nitrogen 12 mg/dL (9-16); Calcium 8.7 mg/dL (8.4-10.2); Carbon Dioxide 28 mmol/L (22-29); Chloride 103 mmol/L (96-108); Estimated Glomerular Filt Rate > 60; Glucose Random 122 mg/dL (60-115); Magnesium 1.8 mg/dL (1.6-2.6); Potassium 3.9 mmol/L (3.3-5.1); Sodium 139 mmol/L (135-145); Total Protein 6.4 g/dL (6.5-8.0)
[2022-12-06 14:20] LABS: COVID-19 Test Negative (Negative); IDNOW Serial# BCCEAD1C
--- NOTE | 2022-12-06 14:23 | MHC.EDTECH ---
this pct took pts labs unable to collect all labs due to rolling veins RN aware
[2022-12-06 20:27] VITALS: BP 124/72; PULSE 96; RESP 18; TEMP 38.2; O2SAT 96
[2022-12-06 21:38] LABS: Lactic Acid 1.2 mmol/L (0.5-2.0)
[2022-12-06] MEDS: Acetaminophen 325 MG TABLET 650 MG PO (21:48)
[2022-12-06 23:08] VITALS: BP 120/72; PULSE 86; RESP 21; TEMP 37.7; O2SAT 96
[2022-12-07] VITALS (8 sets, daily range): BP systolic 105–126; BP diastolic 63–68; PULSE 73–90; RESP 16–18; TEMP 36.7–38.6; O2SAT 93–97
[2022-12-07] MEDS: iohexoL 350 MG/ML 100 ML INFUS..BTL 85 ML IV (00:17)
--- NOTE | 2022-12-07 01:41 | PM.IMHP ---
History of Present Illness Date of Service: 12/07/22 Chief Complaint: Abscess This is a 37-year-old male with pertinent history of morbid obesity status post laparoscopic sleeve gastrectomy, currently not on prescription medications who presents to the emergency department with complaints of left buttock swelling. Patient states it started 5 days prior to presentation. It has been progressive, warm, tender. Patient also has associated fevers and chills. He did not try any [id number] antibiotics. Patient state he has a history of multiple abscesses which have been drained in the past. He denies nausea, vomiting, chest discomfort, palpitations, shortness of breath, changes in urinary or bowel habits. In the emergency department, patient was found to be septic. No drainable abscesses noted Review of Systems Constitutional: Constitutional: Reports chills and Reports fever(s) Cardiovascular: Cardiovascular: Reports no additional cardiovascular complaints Respiratory: Respiratory: Reports no additional respiratory complaints Gastrointestinal: Gastrointestinal: Reports no additional gastrointestinal complaints COUNT INCLUDES THE [facility] Medical History Abscess of buttock, right Back pain COVID-19 vaccine series completed Depression GERD (gastroesophageal reflux disease) H. pylori infection Hepatomegaly Hypertension Liver fibrosis Lower extremity edema Morbid obesity Steatosis, liver Umbilical hernia Vitamin D deficiency Functional capacity: independent ambulation Family History Mother Hypertension Father No problems noted. Brother No problems noted. Brother No problems noted. Sister No problems noted. Surgical History History of lymph node excision Social History Are you a primary healthcare account manager to a significant other at home: No Do you presently have visiting nurse or other home services: No Alcohol intake: never Patient Tobacco Use Status: Never used Tobacco Advance Directives: No Advance Directives Information Provided: No service: No Current occupational status: employed Meds Allergies Allergy/AdvReac Type Severity Reaction Status Date / Time No Known Allergies Allergy Verified 05/06/22 15:16 Active Medications: Current Medications Piperacillin Sod/Tazobactam (Sod 3.375 gm/ Sodium Chloride) 50 mls @ 100 mls/hr IV ONCE ONE Stop: 12/07/22 02:04 Vancomycin HCl (Vancomycin/Ns) 2,000 mg in 500 mls @ 250 mls/hr IV ONCE ONE Stop: 12/07/22 03:34 Sodium Chloride (Ns) 1,000 mls @ 999 mls/hr IVCONT .Q1H1M ONE Stop: 12/07/22 02:39 Pharmacy Consult (Consult Rx Vancomycin Dosing) 1 each MISCELLANE DAILY PRN PRN Reason: Consult order Physical Exam Vital Signs and Narrative: Vital Signs: Last Vital Signs Temp 99.6 F 12/07/22 01:10 Pulse 82 12/07/22 01:10 Resp 18 12/07/22 01:10 BP 105/64 12/07/22 01:10 Pulse Ox 94 12/07/22 01:10 O2 Del Method Room Air 12/07/22 01:10 BMI result Body Mass Index 31.5 Middle-aged male lying in bed in no distress Neck supple, no JVD Regular rate and rhythm, S1-S2 heard Regular breath sounds bilaterally, no wheezing or crackles appreciated Abdomen soft nontender, no guarding, no rigidity Patient is awake, alert and oriented to self, place, time and person ; no focal motor deficit Skin: Left buttock erythema, warmth and tenderness with area of swelling Psych: Normal mood No pedal edema Results Labs 12/06/22 13:50 12/06/22 13:50 Labs: Laboratory Results - last 24 hr 12/06/22 12/06/22 12/06/22 13:50 13:50 13:50 MCV 88.3 MCH 29.1 MCHC 32.9 RDW 13.6 Plt Count 207 MPV 9.7 Immature Gran % (Auto) 0.6 H Neut % (Auto) 81.6 H Lymph % (Auto) 8.2 L [place] % (Auto) 9.2 Eos % (Auto) 0.3 Baso % (Auto) 0.1 Lymph # (Auto) 1.3 [place] # (Auto) 1.5 H Eos # (Auto) 0.0 Baso # (Auto) 0.0 Abs Immat Gran (auto) 0.10 H Absolute Neuts (auto) 12.9 H Absolute Nucleated RBC 0.000 Nucleated RBC % (auto) 0.0 Anion Gap 12 Estim Creat Clear Calc 126.0 Estimated GFR > 60 Random Glucose 122 H Lactic Acid Calcium 8.7 Magnesium 1.8 Total Bilirubin 1.3 H AST 12 ALT 10 Alkaline Phosphatase 62 Total Protein 6.4 L Albumin 3.9 COVID-19 (ROXY) Negative COVID-19 Clin Com See Note 12/06/22 21:19 MCV MCH MCHC RDW Plt Count MPV Immature Gran % (Auto) Neut % (Auto) Lymph % (Auto) [place] % (Auto) Eos % (Auto) Baso % (Auto) Lymph # (Auto) [place] # (Auto) Eos # (Auto) Baso # (Auto) Abs Immat Gran (auto) Absolute Neuts (auto) Absolute Nucleated RBC Nucleated RBC % (auto) Anion Gap Estim Creat Clear Calc Estimated GFR Random Glucose Lactic Acid 1.2 Calcium Magnesium Total Bilirubin AST ALT Alkaline Phosphatase Total Protein Albumin COVID-19 (ROXY) COVID-19 Clin Com Imaging Radiologist's Impressions: Impressions Pelvis CT 12/07/22 00:20 IMPRESSION: Soft tissue/fluid collection in the left buttock cheek as described above. No perirectal abscess is seen. Assessment and Plan (1) Cellulitis: Status: Acute Plan This is a 37-year-old male with pertinent history of morbid obesity status post laparoscopic sleeve gastrectomy, currently not on prescription medications who presents to the emergency department with complaints of left buttock swelling. #. Sepsis due to left buttock cellulitis with soft tissue fluid collection concerning for abscess: Will admit patient and initiate empiric IV antibiotics. Resuscitated with IV crystalloids in the ER. Blood cultures and lactic acid obtained. Consulting general surgery, appreciate assistance DVT prophylaxis: None. Patient is ambulatory Full code Admit as inpatient and will require two night minimum hospital stay for IV antibiotics Time Spent With Patient Time: Total time managing care of this patient today ____ minutes. Quality Stroke Does the patient have a stroke diagnosis?: No VTE Prior VTE?: No VTE Risk Level:: Medical - low VTE Device Contraindication: Treatment Not Indicated VTE Drug Contraindication: Treatment Not Indicated
[2022-12-07] MEDS: 0.9 % Sodium Chloride 1,000 ML 999 ML IVCONT (01:57)
[2022-12-07] MEDS: Piperacillin Sodium/Tazobactam 3.375 GM in 0.9 % Sodium Chloride 50 ML IV (01:57)
[2022-12-07] MEDS: vancomycin/NS 2,000 MG/500 ML PLAST..BAG 250 MG IV (02:29)
--- NOTE | 2022-12-07 03:30 | PC.NURSE ---
Pt. appears in no acute distress. IV's placed in both AC's. Pt. vancomycin is running, however, had difficulties with the pump and needed to change out the pump. The 2nd IV placed for administration of another abx that overlapped the vanco. Pt. VSS. Pt. denies pain. Pt. resting comfortably. Pt. assigned a room on [address] [facility]. Called report to [facility] and pt. transported via [facility]
[2022-12-07] MEDS: cefEPime HCl 2 GM in 0.9 % Sodium Chloride 50 ML IV ×3 (03:39→18:27)
[2022-12-07] MEDS: Acetaminophen 325 MG TABLET 650 MG PO ×2 (05:29→18:35)
[2022-12-07] MEDS: diphenhydrAMINE HCL 50 MG/ML VIAL IVPUSH (05:35)
[2022-12-07 05:57] LABS: MANUAL DIFF FLAG NO
[2022-12-07 06:00] LABS: Basophils Percent Auto 0.1 % (0-2); Eosinophils Absolute Auto 0.1 X10*3/uL (0.0-0.4); Eosinophils Percent Auto 0.5 % (0-4); Hematocrit 40.6 % (42.0-52.0); Hemoglobin 13.3 g/dl (14.0-18.0); Imm Gran Abs Auto 0.06 X10*3/uL (0.00-0.03); Imm Gran Pct Auto 0.5 % (0.0-0.4); Lymphocytes Absolute Auto 1.4 X10*3/uL (1.2-4.9); Lymphocytes Percent Auto 10.4 % (20-40); Mean Corpuscular HGB Conc 32.8 g/dl (31.0-36.0); Mean Corpuscular Volume 88.6 fL (80.0-98.0); Mean Platelet Volume 9.7 fL (9.4-12.4); Monocytes Absolute Auto 0.9 X10*3/uL (0.1-1.2); Monocytes Percent Auto 6.9 % (2-11); Neutrophils Absolute Auto 10.7 x10*3/uL (2.0-8.3); Neutrophils Percent Auto 81.6 % (45-73); Platelet Count 187 X10*3/uL (160-400); Red Blood Count 4.58 X10*6/uL (4.60-5.80); Red Cell Distribution Width 13.3 % (11.0-16.0); White Blood Count 13.1 X10*3/uL (4.8-10.8)
[2022-12-07 06:15] LABS: Anion Gap 12 (12-20); Blood Urea Nitrogen 9 mg/dL (9-16); Calcium 8.3 mg/dL (8.4-10.2); Carbon Dioxide 23 mmol/L (22-29); Chloride 107 mmol/L (96-108); Creatinine Clr Calc Pharmacy 157.5; Estimated Glomerular Filt Rate > 60; Glucose Random 89 mg/dL (60-115); Sodium 138 mmol/L (135-145)
--- NOTE | 2022-12-07 06:26 | PC.NURSE ---
pt said that his face, neck, and chest is itchy, chest feels burning, above the chest feeling itchiness. he said his abscess is getting bigger. given vanco, cefepime, temp. 99.3 oral. notified ordered Benadryl, given by this nurse.
[2022-12-07] MEDS: 0.9 % Sodium Chloride Flush 3 ML SYRINGE IVFLUSH ×3 (08:59→19:22)
--- NOTE | 2022-12-07 09:06 | PHA.MEDREC ---
Addendum entered by Maricel Jacques RPh 12/07/22 09:16: reviewed by [facility] Original Note: Pharmacy Consult ? Medication Reconciliation Pharmacy has completed the medication reconciliation. spoke with patient. He claims he does not take any medications besides tylenol and ibuprofen as needed for pain.
--- NOTE | 2022-12-07 09:16 | PM.CNGS ---
History of Present Illness Consult details Consult date: 12/07/22 Reason for consult: other (Recurring perineal abscess) Requesting physician: Juanjose Mason Narrative: The patient is a 37-year-old gentleman with a history of cutaneous abscesses. Patient was seen by Dr. Brink in the past because of a right buttock abscess that appeared to be an epidermal cyst that resolved with oral antibiotics. Patient denies any rectal bleeding, chronic watery diarrhea or any or personal or family history of inflammatory bowel disease. Patient reports that this abscess started on Friday and when he began experiencing pain in fevers, he came to the emergency department where he was admitted to the medical service with gluteal cellulitis. He denies any drainage. Review of Systems Review of Systems: Yes all other systems are reviewed and are negative Constitutional: Constitutional: Reports as per [facility] Past Medical History Medical History Abscess of buttock, right Back pain COVID-19 vaccine series completed Depression GERD (gastroesophageal reflux disease) H. pylori infection Hepatomegaly Hypertension Liver fibrosis Lower extremity edema Morbid obesity Steatosis, liver Umbilical hernia Vitamin D deficiency Functional capacity: independent ambulation Family History Family History Mother Hypertension Father No problems noted. Brother No problems noted. Brother No problems noted. Sister No problems noted. Surgical History Surgical History History of lymph node excision Social History Social History Household Members: Family Household Members Other:: 4 Housing: House Are you a primary care consultant to a significant other at home: No Do you presently have visiting nurse or other home services: No Alcohol intake: never Patient Tobacco Use Status: Never used Tobacco Second Hand Smoke Exposure: No service: No Current occupational status: employed Meds Allergies Allergy/AdvReac Type Severity Reaction Status Date / Time No Known Allergies Allergy Verified 05/06/22 15:16 Active Medications: Current Medications Acetaminophen (Acetaminophen 325 Mg Tablet) 650 mg PO Q6H PRN PRN Reason: Pain, Mild (Pain Scale 1-3) Last Admin: 12/07/22 05:29 Dose: 650 mg Cefepime HCl 2 gm/ Sodium (Chloride) 50 mls @ 100 mls/hr IV Q8H [facility] Last Infusion: 12/07/22 04:09 Dose: Infused Vancomycin HCl 1,250 mg/ (Sodium Chloride) 250 mls @ 166.667 mls/hr IV Q12H [facility] Melatonin (Melatonin 3 Mg Tablet) 6 mg PO BEDTIME PRN PRN Reason: Insomnia Ondansetron HCl (Ondansetron Hcl 4 Mg/2 Ml Vial) 4 mg IVPUSH Q8H PRN PRN Reason: Nausea and Vomiting Pharmacy Consult (Consult Rx Perform Med Rec) 1 each MISCELLANE ONCE PRN PRN Reason: Consult order Pharmacy Consult (Consult Rx Vancomycin Dosing) 1 each MISCELLANE DAILY PRN PRN Reason: Consult order Sodium Chloride (0.9 % Sodium Chloride Flush 3 Ml Syringe) 3 ml IVFLUSH QSHIFT [facility] Last Admin: 12/07/22 08:59 Dose: 3 ml Home Medications Medication Instructions Recorded Confirmed Last Taken Type acetaminophen 500 mg tablet 1,000 mg PO Q6H PRN Pain 12/07/22 12/07/22 12/06/22 History ibuprofen 200 mg tablet 400 mg PO Q6H PRN Pain 12/07/22 12/07/22 12/06/22 History Physical Exam Vital Signs: Vital Signs: Last Vital Signs Temp 99.5 F 12/07/22 07:54 Pulse 90 12/07/22 07:54 Resp 16 12/07/22 07:54 BP 110/63 12/07/22 07:54 Pulse Ox 93 12/07/22 07:54 O2 Del Method Room Air 12/07/22 07:54 BMI result Body Mass Index 31.5 The patient is non-toxic & in good spirits NC/AT, PERRLA, EOMI Mood, affect & judgment all appear appropriate Sclera anicteric conjunctiva pink and moist Oropharynx is clear with no aphthous ulcers, Mallampati class 2, mucous membranes moist Neck is supple with no masses, adenopathy Heart is regular, normal S1-S2 no rubs or murmurs Lungs are clear and equal anteriorly with no audible wheezing, rubs or dullness to percussion Abdomen is overweight with no demonstrable hernias. No HSM, rebound, rigidity, guarding, masses or bruits are present. Rectal exam is deferred for pt comfort; In the left anterolateral of midline perineum, there is a abscess with palpable fluctuance and tenderness. Under loupe magnification, no obvious fistula noted, but scarring consistent with prior infections is noted. Skin has good turgor and is free of rashes Extremities free of cyanosis clubbing edema Results Labs 12/07/22 05:53 12/07/22 05:53 Labs: Abnormal lab results 12/06/22 12/06/22 12/07/22 Range/Units 13:50 13:50 05:53 WBC 15.8 H 13.1 H (4.8-10.8) X10*3/uL RBC 4.54 L 4.58 L (4.60-5.80) X10*6/uL Hgb 13.2 L 13.3 L (14.0-18.0) g/dl Hct 40.1 L 40.6 L (42.0-52.0) % Immature Gran % (Auto) 0.6 H 0.5 H (0.0-0.4) % Neut % (Auto) 81.6 H 81.6 H (45-73) % Lymph % (Auto) 8.2 L 10.4 L (20-40) % [place] # (Auto) 1.5 H (0.1-1.2) X10*3/uL Abs Immat Gran (auto) 0.10 H 0.06 H (0.00-0.03) X10*3/uL Absolute Neuts (auto) 12.9 H 10.7 H (2.0-8.3) x10*3/uL Random Glucose 122 H (60-115) mg/dL Calcium (8.4-10.2) mg/dL Total Bilirubin 1.3 H (0.0-1.0) mg/dL Total Protein 6.4 L (6.5-8.0) g/dL 12/07/22 Range/Units 05:53 WBC (4.8-10.8) X10*3/uL RBC (4.60-5.80) X10*6/uL Hgb (14.0-18.0) g/dl Hct (42.0-52.0) % Immature Gran % (Auto) (0.0-0.4) % Neut % (Auto) (45-73) % Lymph % (Auto) (20-40) % [place] # (Auto) (0.1-1.2) X10*3/uL Abs Immat Gran (auto) (0.00-0.03) X10*3/uL Absolute Neuts (auto) (2.0-8.3) x10*3/uL Random Glucose (60-115) mg/dL Calcium 8.3 L (8.4-10.2) mg/dL Total Bilirubin (0.0-1.0) mg/dL Total Protein (6.5-8.0) g/dL Short CBC 12/06/22 12/07/22 Range/Units 13:50 05:53 WBC 15.8 H 13.1 H (4.8-10.8) X10*3/uL Hgb 13.2 L 13.3 L (14.0-18.0) g/dl Hct 40.1 L 40.6 L (42.0-52.0) % Plt Count 207 187 (160-400) X10*3/uL BMP 12/06/22 12/07/22 13:50 05:53 Sodium 139 138 Potassium 3.9 4.0 Chloride 103 107 Carbon Dioxide 28 23 BUN 12 9 Creatinine 0.95 0.76 Calcium 8.7 8.3 L Liver Function 12/06/22 Range/Units 13:50 Total Bilirubin 1.3 H (0.0-1.0) mg/dL AST 12 (5-37) U/L ALT 10 (0-40) U/L Alkaline Phosphatase 62 (39-117) U/L Albumin 3.9 (3.5-5.0) g/dL All other labs normal. Imaging CT scan - pelvis: report reviewed and image reviewed Assessment and Plan (1) Cellulitis: Status: Acute (2) Abscess of superficial perineal space: Status: Acute (3) Tinea: Status: Acute (4) Obesity (BMI 30.0-34.9): Status: Acute (5) JUNIOR (obstructive sleep apnea): Status: Acute (6) Prediabetes: Status: Acute Plan I suspect that the patient has some sort of fistula given his recurring infections. However, given the diffuse cellulitis and discrete abscess, I explained and recommended the need for incision and drainage at the bedside. The other option of continuing antibiotics alone with medical management was discussed and the patient would like me to proceed with incision and drainage of a left perineal abscess. The risks of bleeding, infection, need for another procedure or definitive assessment by a colorectal surgeon was explained to the patient. His questions seemed to be satisfactorily answered and he would like to proceed. Signed informed consent was obtained. Procedure note: With the patient in left lateral decubitus position, following written informed consent and an appropriate time-out, the patient's left perineal area and left buttock was prepped with Betadine. Local of 1% xylocaine was infiltrated into the abscess in the left anterior peritoneum and left lateral buttock. After ensuring good analgesia, an 11 blade was used incise the skin with expression of gross purulence. The pocket was irrigated copiously until it ran clear and half-inch iodoform gauze placed. There was then washed and dried, 4x4s and an ABD placed with mesh underwear. Patient tolerated the procedure well. Time Spent With Patient Time: Total time managing care of this patient today ____ minutes. Procedures Date of Service Date of Service: 12/07/22 Abscess I/D Site: other (Perineum and perianal abscess) Side (if applicable): left Anesthetic used: lidocaine 2% Technique: incised with #11 blade Amount of fluid (mL): 5 Packing used?: iodoform Complications: pain Additional comments: Culture obtained; pocket irrigated; await culture. Tolerated well
--- NOTE | 2022-12-07 10:55 | PM.EVENT ---
Event Note Date of Service: 12/07/22 Event Note: Chart reviewed patient examined. Agree with history and physical and plan as outlined. Bedside drainage by surgery. Continue IV antibiotics Time Spent With Patient Time: Total time managing care of this patient today ____ minutes.
--- NOTE | 2022-12-07 13:17 | MHC.CM.PN ---
pt lives with wiufe and children he is independent and working will not need servceis whn dcd he is covid vax
--- NOTE | 2022-12-07 13:20 | MHC.CM.PN ---
pt is independent lives with and children pt is covid vax x 2 hgas own ride home
--- NOTE | 2022-12-07 14:26 | PHA.PROG ---
Admission Date/Time: December 07, 2022 01:40 Indication: skin Weight in k.79 kg Adjusted body weight in Kg: [place] body weight in Kg: Obesity Dosing Indication % IBW: Serum Creatinine - Last 168 Hours 12/06/22 12/07/22 13:50 05:53 Creatinine 0.95 0.76 Estimated CrCl and GFR - Last 168 Hours 12/06/22 12/07/22 13:50 05:53 Estim Creat Clear Calc 126.0 157.5 Estimated GFR > 60 > 60 Vancomycin Loading Dose: 1999 Current Vancomycin Dosing Regimen: 1250 mg q12h Vancomycin Monitoring using AUC goal of 400 - 600 range with trough as surrogate marker: 461 Date and Time for next Vancomycin Level to be drawn: 12/08 1200 Pharmacist Comments on Vancomycin Plan: Vancomycin dosing will take advantage of [employer] Wellen as a clinical decision support tool that uses Bayesian modeling to calculate individual patient's pharmacokinetic parameters and forecast the patient's drug concentration time course with the target goal AUC 24 range of 400 - 600 mg/L/hr.
--- NOTE | 2022-12-07 18:27 | PM.EVENT ---
Event Note Date of Service: 12/07/22 Event Note: Discussed with nursing; patient developed diffuse itchiness after vancomycin dose without any subsequent erythema or shortness of breath. Given such will DC vancomycin in favor of doxycycline. Continue cefepime Time Spent With Patient Time: Total time managing care of this patient today ____ minutes.
[2022-12-07] MEDS: Doxycycline Hyclate 100 MG in 0.9 % Sodium Chloride 250 ML 166.67 MG IV (19:22)
[2022-12-08] MEDS: cefEPime HCl 2 GM in 0.9 % Sodium Chloride 50 ML IV (02:06)
[2022-12-08 02:23] VITALS: BP 110/60; PULSE 56; RESP 16; TEMP 36.9; O2SAT 98
[2022-12-08] MEDS: Doxycycline Hyclate 100 MG in 0.9 % Sodium Chloride 250 ML 166.67 MG IV ×2 (05:28→18:03)
[2022-12-08 06:17] LABS: MANUAL DIFF FLAG NO
[2022-12-08 06:29] LABS: Basophils Percent Auto 0.2 % (0-2); Eosinophils Absolute Auto 0.2 X10*3/uL (0.0-0.4); Eosinophils Percent Auto 1.4 % (0-4); Hemoglobin 11.9 g/dl (14.0-18.0); Imm Gran Abs Auto 0.05 X10*3/uL (0.00-0.03); Imm Gran Pct Auto 0.5 % (0.0-0.4); Lymphocytes Absolute Auto 1.7 X10*3/uL (1.2-4.9); Lymphocytes Percent Auto 15.9 % (20-40); Mean Corpuscular HGB Conc 33.1 g/dl (31.0-36.0); Mean Corpuscular Hemoglobin 29.5 pg (27.0-33.0); Mean Corpuscular Volume 89.3 fL (80.0-98.0); Mean Platelet Volume 9.5 fL (9.4-12.4); Monocytes Percent Auto 9.4 % (2-11); Neutrophils Absolute Auto 7.8 x10*3/uL (2.0-8.3); Neutrophils Percent Auto 72.6 % (45-73); Platelet Count 221 X10*3/uL (160-400); Red Blood Count 4.03 X10*6/uL (4.60-5.80); Red Cell Distribution Width 13.2 % (11.0-16.0); White Blood Count 10.7 X10*3/uL (4.8-10.8)
[2022-12-08 06:47] LABS: Alanine Aminotransferase 9 U/L (0-40); Albumin Level 3.3 g/dL (3.5-5.0); Alkaline Phosphatase 53 U/L (39-117); Anion Gap 11 (12-20); Aspartate Amino Transferase 11 U/L (5-37); Bilirubin Total 0.9 mg/dL (0.0-1.0); Blood Urea Nitrogen 9 mg/dL (9-16); Calcium 8.5 mg/dL (8.4-10.2); Carbon Dioxide 27 mmol/L (22-29); Chloride 105 mmol/L (96-108); Creatinine Clr Calc Pharmacy 151.5; Estimated Glomerular Filt Rate > 60; Glucose Fasting 88 mg/dL (60-99); Sodium 139 mmol/L (135-145); Total Protein 5.6 g/dL (6.5-8.0)
[2022-12-08 08:01] VITALS: BP 122/73; PULSE 79; RESP 16; TEMP 37.2; O2SAT 96
--- NOTE | 2022-12-08 08:37 | HO.PM.IMPN ---
Subjective Subjective Date of Service: 12/08/22 Interval History: left buttock pain and swelling, fever last night Physical Exam Vital Signs: Vital Signs: Last Vital Signs Temp 99.0 F 12/08/22 08:01 Pulse 79 12/08/22 08:01 Resp 16 12/08/22 08:01 BP 122/73 12/08/22 08:01 Pulse Ox 96 12/08/22 08:01 O2 Del Method Room Air 12/08/22 08:01 BMI result Body Mass Index 31.5 left buttock asbcess s/p I and D Objective Data Active Medications Acetaminophen (Acetaminophen 325 Mg Tablet) 650 mg PO Q6H PRN PRN Reason: Pain, Mild (Pain Scale 1-3) Last Admin: 12/07/22 18:35 Dose: 650 mg Documented By: BOSTON Cefepime HCl 2 gm/ Sodium (Chloride) 50 mls @ 100 mls/hr IV Q8H [facility] Last Infusion: 12/08/22 02:36 Dose: 0 mls/hr Documented By: DAVID Doxycycline Hyclate 100 mg/ (Sodium Chloride) 250 mls @ 166.67 mls/hr IV Q12H [facility] Last Infusion: 12/08/22 07:12 Dose: 0 mls/hr Documented By: BOSTON Melatonin (Melatonin 3 Mg Tablet) 6 mg PO BEDTIME PRN PRN Reason: Insomnia Ondansetron HCl (Ondansetron Hcl 4 Mg/2 Ml Vial) 4 mg IVPUSH Q8H PRN PRN Reason: Nausea and Vomiting Pharmacy Consult (Consult Rx Perform Med Rec) 1 each MISCELLANE ONCE PRN PRN Reason: Consult order Sodium Chloride (0.9 % Sodium Chloride Flush 3 Ml Syringe) 3 ml IVFLUSH QSHIFT [facility] Last Admin: 12/08/22 07:04 Dose: Not Given Documented By: BOSTON Non-Admin Reason: IV Running Labs 12/08/22 05:59 12/08/22 05:59 Labs: Laboratory Results - last 24 hr 12/08/22 12/08/22 05:59 05:59 MCV 89.3 MCH 29.5 MCHC 33.1 RDW 13.2 Plt Count 221 MPV 9.5 Immature Gran % (Auto) 0.5 H Neut % (Auto) 72.6 Lymph % (Auto) 15.9 L [place] % (Auto) 9.4 Eos % (Auto) 1.4 Baso % (Auto) 0.2 Lymph # (Auto) 1.7 [place] # (Auto) 1.0 Eos # (Auto) 0.2 Baso # (Auto) 0.0 Abs Immat Gran (auto) 0.05 H Absolute Neuts (auto) 7.8 Absolute Nucleated RBC 0.000 Nucleated RBC % (auto) 0.0 Anion Gap 11 L Estim Creat Clear Calc 151.5 Estimated GFR > 60 Fasting Glucose 88 Calcium 8.5 Total Bilirubin 0.9 AST 11 ALT 9 Alkaline Phosphatase 53 Total Protein 5.6 L Albumin 3.3 L Microbiology Microbiology Results: Microbiology 12/06/22 21:19 Blood Culture - Preliminary Blood - Venous No growth after 24 hours. 12/06/22 01:00 Blood Culture - Preliminary Blood - Venous No growth after 24 hours. 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 Quality Stroke Does the patient have a stroke diagnosis?: No VTE Prior VTE?: No VTE Risk Level:: Medical - low VTE Device Contraindication: Treatment Not Indicated VTE Drug Contraindication: Treatment Not Indicated
[2022-12-08] MEDS: ceFAZolin Sodium/Dextrose,Iso 2 GM/50 ML PIGGYBACK IV ×3 (09:21→23:40)
--- NOTE | 2022-12-08 10:05 | P.PNGS_ITS ---
Subjective Subjective Date of Service: 12/08/22 Patient reports: feels better and tolerating liquids well Interval history: The patient reports that he is doing well since the drainage at the bedside yesterday. He denies any worsening symptoms but did have fevers overnight. He denies any chest pain, difficulty breathing or shortness of breath. He states he is passing gas and had a bowel movement. Physical Exam Vital Signs: Vital Signs: Last Vital Signs Temp 99.0 F 12/08/22 08:01 Pulse 79 12/08/22 08:01 Resp 16 12/08/22 08:01 BP 122/73 12/08/22 08:01 Pulse Ox 96 12/08/22 08:01 O2 Del Method Room Air 12/08/22 08:01 BMI result Body Mass Index 31.5 On exam, the patient is nontoxic He is in good spirits in no acute respiratory distress Abdomen remains soft with no tenderness With the patient in left lateral decubitus position, the packing was removed from both I and D sites Objective Data Active Medications Acetaminophen (Acetaminophen 325 Mg Tablet) 650 mg PO Q6H PRN PRN Reason: Pain, Mild (Pain Scale 1-3) Last Admin: 12/07/22 18:35 Dose: 650 mg Documented By: BOSTON Docusate Sodium (Docusate Sodium 100 Mg Capsule) 200 mg PO BID [facility] Doxycycline Hyclate 100 mg/ (Sodium Chloride) 250 mls @ 166.67 mls/hr IV Q12H [facility] Last Infusion: 12/08/22 07:12 Dose: 0 mls/hr Documented By: BOSTON Cefazolin Sodium/Dextrose (Ancef) 2 gm in 50 mls @ 100 mls/hr IV Q8H [facility] Last Infusion: 12/08/22 09:53 Dose: 0 mls/hr Documented By: BOSTON Melatonin (Melatonin 3 Mg Tablet) 6 mg PO BEDTIME PRN PRN Reason: Insomnia Ondansetron HCl (Ondansetron Hcl 4 Mg/2 Ml Vial) 4 mg IVPUSH Q8H PRN PRN Reason: Nausea and Vomiting Pharmacy Consult (Consult Rx Perform Med Rec) 1 each MISCELLANE ONCE PRN PRN Reason: Consult order Sodium Chloride (0.9 % Sodium Chloride Flush 3 Ml Syringe) 3 ml IVFLUSH QSHIFT [facility] Last Admin: 12/08/22 07:04 Dose: Not Given Documented By: BOSTON Non-Admin Reason: IV Running Labs 12/08/22 05:59 12/08/22 05:59 Labs: Laboratory Results - last 24 hr 12/08/22 12/08/22 05:59 05:59 MCV 89.3 MCH 29.5 MCHC 33.1 RDW 13.2 Plt Count 221 MPV 9.5 Immature Gran % (Auto) 0.5 H Neut % (Auto) 72.6 Lymph % (Auto) 15.9 L [place] % (Auto) 9.4 Eos % (Auto) 1.4 Baso % (Auto) 0.2 Lymph # (Auto) 1.7 [place] # (Auto) 1.0 Eos # (Auto) 0.2 Baso # (Auto) 0.0 Abs Immat Gran (auto) 0.05 H Absolute Neuts (auto) 7.8 Absolute Nucleated RBC 0.000 Nucleated RBC % (auto) 0.0 Anion Gap 11 L Estim Creat Clear Calc 151.5 Estimated GFR > 60 Fasting Glucose 88 Calcium 8.5 Total Bilirubin 0.9 AST 11 ALT 9 Alkaline Phosphatase 53 Total Protein 5.6 L Albumin 3.3 L Microbiology Microbiology Results: Microbiology 12/07/22 11:21 Gram Stain - Final Abscess Rectal Routine Culture - Preliminary Staphylococcus species 12/06/22 21:19 Blood Culture - Preliminary Blood - Venous No growth after 24 hours. 12/06/22 01:00 Blood Culture - Preliminary Blood - Venous No growth after 24 hours. Procedures Date of Service Date of Service: 12/08/22 Progress Note: A&P Assessment and plan (1) Abscess of superficial perineal space: Status: Acute (2) Cellulitis: Status: Acute (3) Tinea: Status: Acute (4) Obesity (BMI 30.0-34.9): Status: Acute (5) JUNIOR (obstructive sleep apnea): Status: Acute Plan I explained to the patient that it is unclear whether not he is experiencing recurrent infections from perianal his dry adenitis or another skin disorder or a possible anal rectal fistula. Given the degree of scarring, he will need evaluation by a colorectal surgeon and would like to return to see Dr. Brink, who he is previously seen. Management including showering 3-4 times a day and p.r.n., dressing changes and recommendation to use feminine hygiene products rather than sterile gauze and avoid tape, using undergarments or mesh underwear to hold the dressings were discussed. Maintaining a stool softener for a bowel regime was discussed and discharge on antibiotics will be likely tomorrow. I have advanced his diet. Time Spent With Patient Time: Total time managing care of this patient today ____ minutes. Quality Stroke Does the patient have a stroke diagnosis?: No VTE Prior VTE?: No VTE Risk Level:: Medical - low VTE Device Contraindication: Treatment Not Indicated VTE Drug Contraindication: Treatment Not Indicated
[2022-12-08 12:24] LABS: Vancomycin Trough < 2.0 mcg/mL (10.0-20.0)
[2022-12-08 15:52] VITALS: BP 120/70; PULSE 77; RESP 16; TEMP 37; O2SAT 96
[2022-12-08] MEDS: 0.9 % Sodium Chloride Flush 3 ML SYRINGE IVFLUSH ×2 (16:41→20:09)
[2022-12-08 20:00] VITALS: BP 107/66; PULSE 91; RESP 16; TEMP 36.8; O2SAT 96
[2022-12-08] MEDS: Docusate Sodium 100 MG CAPSULE 200 MG PO (20:06)
--- NOTE | 2022-12-09 06:24 | PM.PNGS ---
Subjective Subjective Date of Service: 12/09/22 Patient reports: feels better Interval history: Doing well Physical Exam Vital Signs: Vital Signs: Last Vital Signs Temp 98.3 F 12/08/22 20:00 Pulse 91 12/08/22 20:00 Resp 16 12/08/22 20:00 BP 107/66 12/08/22 20:00 Pulse Ox 96 12/08/22 20:00 O2 Del Method Room Air 12/08/22 20:00 BMI result Body Mass Index 31.5 Objective Data Active Medications Acetaminophen (Acetaminophen 325 Mg Tablet) 650 mg PO Q6H PRN PRN Reason: Pain, Mild (Pain Scale 1-3) Last Admin: 12/07/22 18:35 Dose: 650 mg Documented By: BOSTON Docusate Sodium (Docusate Sodium 100 Mg Capsule) 200 mg PO BID [facility] Last Admin: 12/08/22 20:06 Dose: 200 mg Documented By: VIGNESH Doxycycline Hyclate 100 mg/ (Sodium Chloride) 250 mls @ 166.67 mls/hr IV Q12H [facility] Last Infusion: 12/08/22 20:10 Dose: 0 mls/hr Documented By: VIGNESH Cefazolin Sodium/Dextrose (Ancef) 2 gm in 50 mls @ 100 mls/hr IV Q8H [facility] Last Infusion: 12/09/22 00:15 Dose: 0 mls/hr Documented By: VIGNESH Melatonin (Melatonin 3 Mg Tablet) 6 mg PO BEDTIME PRN PRN Reason: Insomnia Ondansetron HCl (Ondansetron Hcl 4 Mg/2 Ml Vial) 4 mg IVPUSH Q8H PRN PRN Reason: Nausea and Vomiting Pharmacy Consult (Consult Rx Perform Med Rec) 1 each MISCELLANE ONCE PRN PRN Reason: Consult order Sodium Chloride (0.9 % Sodium Chloride Flush 3 Ml Syringe) 3 ml IVFLUSH QSHIFT [facility] Last Admin: 12/08/22 20:09 Dose: 3 ml Documented By: VIGNESH Labs 12/08/22 05:59 12/08/22 05:59 Labs: Laboratory Results - last 24 hr 12/08/22 12/08/22 12/08/22 05:59 05:59 11:44 MCV 89.3 MCH 29.5 MCHC 33.1 RDW 13.2 Plt Count 221 MPV 9.5 Immature Gran % (Auto) 0.5 H Neut % (Auto) 72.6 Lymph % (Auto) 15.9 L [place] % (Auto) 9.4 Eos % (Auto) 1.4 Baso % (Auto) 0.2 Lymph # (Auto) 1.7 [place] # (Auto) 1.0 Eos # (Auto) 0.2 Baso # (Auto) 0.0 Abs Immat Gran (auto) 0.05 H Absolute Neuts (auto) 7.8 Absolute Nucleated RBC 0.000 Nucleated RBC % (auto) 0.0 Anion Gap 11 L Estim Creat Clear Calc 151.5 Estimated GFR > 60 Fasting Glucose 88 Calcium 8.5 Total Bilirubin 0.9 AST 11 ALT 9 Alkaline Phosphatase 53 Total Protein 5.6 L Albumin 3.3 L Vancomycin Trough < 2.0 L Microbiology Microbiology Results: Microbiology 12/06/22 21:19 Blood Culture - Preliminary Blood - Venous No growth after 48 hours. 12/06/22 01:00 Blood Culture - Preliminary Blood - Venous No growth after 48 hours. 12/07/22 11:21 Gram Stain - Final Abscess Rectal Routine Culture - Preliminary Staphylococcus species Procedures Date of Service Date of Service: 12/09/22 Progress Note: A&P Assessment and plan (1) Abscess of superficial perineal space: Status: Acute (2) Cellulitis: Status: Acute Plan Surgically stable for discharge. Patient given instructions to continue stool softener, continue p.o. antibiotics and follow-up with Dr. Brink in 2 weeks. He will shower 3-4 times a day to keep the area clean and change dressings p.r.n.. Cost effective options including feminine hygiene products reviewed with the patient. Time Spent With Patient Time: Total time managing care of this patient today ____ minutes. Quality Stroke Does the patient have a stroke diagnosis?: No VTE Prior VTE?: No VTE Risk Level:: Medical - low VTE Device Contraindication: Treatment Not Indicated VTE Drug Contraindication: Treatment Not Indicated
[2022-12-09] MEDS: Doxycycline Hyclate 100 MG in 0.9 % Sodium Chloride 250 ML 166.67 MG IV (06:26)
[2022-12-09 06:31] LABS: MANUAL DIFF FLAG NO
[2022-12-09 06:42] LABS: Basophils Percent Auto 0.2 % (0-2); Eosinophils Absolute Auto 0.2 X10*3/uL (0.0-0.4); Eosinophils Percent Auto 2.1 % (0-4); Hematocrit 36.4 % (42.0-52.0); Imm Gran Abs Auto 0.05 X10*3/uL (0.00-0.03); Imm Gran Pct Auto 0.6 % (0.0-0.4); Lymphocytes Absolute Auto 1.8 X10*3/uL (1.2-4.9); Lymphocytes Percent Auto 22.2 % (20-40); Mean Corpuscular Hemoglobin 29.1 pg (27.0-33.0); Mean Corpuscular Volume 88.1 fL (80.0-98.0); Mean Platelet Volume 9.7 fL (9.4-12.4); Monocytes Absolute Auto 0.9 X10*3/uL (0.1-1.2); Monocytes Percent Auto 11.1 % (2-11); Neutrophils Absolute Auto 5.2 x10*3/uL (2.0-8.3); Neutrophils Percent Auto 63.8 % (45-73); Platelet Count 253 X10*3/uL (160-400); Red Blood Count 4.13 X10*6/uL (4.60-5.80); Red Cell Distribution Width 13.1 % (11.0-16.0); White Blood Count 8.1 X10*3/uL (4.8-10.8)
[2022-12-09 06:46] LABS: Hematocrit 36.7 % (42.0-52.0); Hemoglobin 12.1 g/dl (14.0-18.0); Mean Corpuscular Hemoglobin 29.1 pg (27.0-33.0); Mean Corpuscular Volume 88.2 fL (80.0-98.0); Mean Platelet Volume 9.5 fL (9.4-12.4); Platelet Count 241 X10*3/uL (160-400); Red Blood Count 4.16 X10*6/uL (4.60-5.80); White Blood Count 7.8 X10*3/uL (4.8-10.8)
[2022-12-09 07:13] LABS: Alanine Aminotransferase 9 U/L (0-40); Albumin Level 3.5 g/dL (3.5-5.0); Alkaline Phosphatase 54 U/L (39-117); Anion Gap 13 (12-20); Aspartate Amino Transferase 10 U/L (5-37); Bilirubin Total 0.5 mg/dL (0.0-1.0); Blood Urea Nitrogen 9 mg/dL (9-16); Calcium 8.6 mg/dL (8.4-10.2); Carbon Dioxide 26 mmol/L (22-29); Chloride 105 mmol/L (96-108); Creatinine Clr Calc Pharmacy 153.5; Estimated Glomerular Filt Rate > 60; Glucose Fasting 90 mg/dL (60-99); Potassium 3.9 mmol/L (3.3-5.1); Sodium 140 mmol/L (135-145); Total Protein 5.8 g/dL (6.5-8.0)
[2022-12-09 07:50] VITALS: BP 119/74; PULSE 66; RESP 16; TEMP 36.2; O2SAT 97
[2022-12-09] MEDS: 0.9 % Sodium Chloride Flush 3 ML SYRINGE IVFLUSH (08:38)
[2022-12-09] MEDS: Docusate Sodium 100 MG CAPSULE 200 MG PO (08:38)
[2022-12-09] MEDS: ceFAZolin Sodium/Dextrose,Iso 2 GM/50 ML PIGGYBACK IV (08:38)
--- NOTE | 2022-12-09 09:27 | P.DS_ITS ---
DS: Providers Provider Date of Service: 12/09/22 Date of admission: 12/07/22 01:40 Primary care physician: Frannie Chandra MD Consults: 12/07/22 02:00 Consult to General Surgery Routine Consulting Provider: [facility] [place] [facility] Reason for consultation: buttock abscess DS: Diagnosis Discharge Diagnosis (1) Abscess of superficial perineal space: Status: Acute (2) Cellulitis: Status: Acute DS: Summary Hospital Course Hospital Course: from initial hpi: 37-year-old male with pertinent history of morbid obesity status post laparoscopic sleeve gastrectomy, currently not on prescription medications who presents to the emergency department with complaints of left buttock swelling.? Patient states it started 5 days prior to presentation.? It has been progressive, warm, tender.? Patient also has associated fevers and chills.? He did not try any wmes-waz-txykaax antibiotics.? Patient state he has a history of multiple abscesses which have been drained in the past.? He denies nausea, vomiting, chest discomfort, palpitations, shortness of breath, changes in urinary or bowel habits. In the emergency department, patient was found to be septic.? No drainable abscesses noted hospital course: Patient was admitted for sepsis due to left buttock abscess with cellulitis. He underwent incision and drainage on 12/07/2022. Wound Cultures grew MSSA. He was initially treated with IV vancomycin but had red man like reaction to it this was changed doxycycline. On discharge he will be given 7 more days of Augmentin. He will follow up with surgery. Time Spent with Patient Time attestation: Total time managing care of this patient today ____ minutes. Discharge coordination time: Greater than 30 minutes Quality: Safe Use of Opioids Does Pt have an Active Cancer Diagnosis on the Problem List?: No Quality: Stroke Does the patient have a stroke diagnosis?: No Physical Exam Vital Signs: Vital Signs: Last Vital Signs Temp 97.2 F 12/09/22 07:50 Pulse 66 12/09/22 07:50 Resp 16 12/09/22 07:50 BP 119/74 12/09/22 07:50 Pulse Ox 97 12/09/22 07:50 O2 Del Method Room Air 12/09/22 07:50 BMI result Body Mass Index 31.5 General: AO X 3, no acute distress Resp: CTA bilateral, no accessory muscles used CVS: S1,S2,RRR GI: soft, non tender, non distended Neuro: motor grossly intact, alert Psych: appropriate affect, appropriate insight DS: Data Data Completed and Pending Completed studies during hospitalization [Text1]: Procedures Excision of Stomach, Percutaneous Endoscopic Approach, Vertical (01/26/21) Release Peritoneum, Percutaneous Endoscopic Approach (01/26/21) Repair Diaphragm, Percutaneous Endoscopic Approach (01/26/21) Labs on day of discharge: Laboratory Results - last 24 hr 12/08/22 12/09/22 12/09/22 11:44 05:33 05:33 WBC 7.8 RBC 4.16 L Hgb 12.1 L Hct 36.7 L MCV 88.2 MCH 29.1 MCHC 33.0 RDW 13.0 Plt Count 241 MPV 9.5 Immature Gran % (Auto) Neut % (Auto) Lymph % (Auto) [place] % (Auto) Eos % (Auto) Baso % (Auto) Lymph # (Auto) [place] # (Auto) Eos # (Auto) Baso # (Auto) Abs Immat Gran (auto) Absolute Neuts (auto) Absolute Nucleated RBC 0.000 Nucleated RBC % (auto) 0.0 Sodium 140 Potassium 3.9 Chloride 105 Carbon Dioxide 26 Anion Gap 13 BUN 9 Creatinine 0.78 Estim Creat Clear Calc 153.5 Estimated GFR > 60 Fasting Glucose 90 Calcium 8.6 Total Bilirubin 0.5 AST 10 ALT 9 Alkaline Phosphatase 54 Total Protein 5.8 L Albumin 3.5 Vancomycin Trough < 2.0 L 12/09/22 05:33 WBC 8.1 RBC 4.13 L Hgb 12.0 L Hct 36.4 L MCV 88.1 MCH 29.1 MCHC 33.0 RDW 13.1 Plt Count 253 MPV 9.7 Immature Gran % (Auto) 0.6 H Neut % (Auto) 63.8 Lymph % (Auto) 22.2 [place] % (Auto) 11.1 H Eos % (Auto) 2.1 Baso % (Auto) 0.2 Lymph # (Auto) 1.8 [place] # (Auto) 0.9 Eos # (Auto) 0.2 Baso # (Auto) 0.0 Abs Immat Gran (auto) 0.05 H Absolute Neuts (auto) 5.2 Absolute Nucleated RBC 0.000 Nucleated RBC % (auto) 0.0 Sodium Potassium Chloride Carbon Dioxide Anion Gap BUN Creatinine Estim Creat Clear Calc Estimated GFR Fasting Glucose Calcium Total Bilirubin AST ALT Alkaline Phosphatase Total Protein Albumin Vancomycin Trough Preliminary micro results at discharge 12/06/22 21:19 Blood Culture - Preliminary Blood - Venous No growth after 48 hours. 12/06/22 01:00 Blood Culture - Preliminary Blood - Venous No growth after 48 hours. Discharge Plan Discharge Anticipated Discharge Date/Time: 12/09/22 09:25 Patient Disposition: Home, Self-Care Discharge Diagnosis: abscess, cellulitis Referrals: Frannie Chandra MD [Primary Care Provider] - 1 Week Joaquín Brink MD [Physician] - 1 Week Discharge Medications: New amoxicillin-pot clavulanate 875-125 mg tablet 1 tab PO Q12H Qty: 14 0RF Continued acetaminophen 500 mg Tablet 1,000 mg PO Q6H PRN (Reason: Pain) ibuprofen 200 mg Tablet 400 mg PO Q6H PRN (Reason: Pain) Discharge Orders: Discharge Order (Routine); Ordered 12/09/22 Ordered By: Prabhjot Perez Diet: Advance to usual diet Activity on Discharge: As tolerated Stand Alone Forms: Patient Portal Discharge page Activity Restrictions/Additional Instructions: You will need a follow-up appointment with Dr. Erica Brink in the next 2 weeks at [phone] and will need to discuss possible anorectal fistula evaluation. If you need a follow-up appointment before then, you can reach out to Dr. Amin at the same number. You should shower 2-4 times a day using soap and water to wash the area and use some sort of dressing to catch drainage. Expect that the drainage should taper off over the next week. If you need a work note, please contact the office. Once the drainage has minimized, you should be fine to return to work. If your pain returns, you experience worsening pain or fevers, please contact the office or report to the nearest emergency room for evaluation. Care Plan Goals: recovery Health Concerns: abscess Plan of Treatment: augmentin 7 days, follow up surgery Assessment: see above
--- NOTE | 2022-12-09 09:46 | MHC.CM.PN ---
pt dcd home no skilled servceis ordered by
== END 2022-12-09 11:40 | disposition home or self-care (01) | DRG 720 ==
LOC: HO.ED 12-07 01:46 → HO.EDOVER 12-07 01:54 → HO.S3 12-07 02:24
PROVIDERS: Hospitalist; Physician Assistant Medical; Admitting Provider Student in an Organized Health Care Education/Training Program; Emergency Provider Emergency Medicine; PCP Internal Medicine; Visit Provider Internal Medicine
DX: A41.9 Sepsis, unspecified organism (principal); L02.215 Cutaneous abscess of perineum; B35.9 Dermatophytosis, unspecified; B95.61 Methicillin susceptible Staphylococcus aureus infection as the cause of diseases classified elsewhere; L03.315 Cellulitis of perineum; E66.9 Obesity, unspecified; L27.0 Generalized skin eruption due to drugs and medicaments taken internally; T36.8X5A Adverse effect of other systemic antibiotics, initial encounter; Z68.31 Body mass index [BMI] 31.0-31.9, adult; Z20.822 Contact with and (suspected) exposure to COVID-19; Z98.84 Bariatric surgery status
CPT/HCPCS: 36415; 72193; 80048; 80053; 80202; 83605; 83735; 85025; 85027; 87040; 87070; 87077; 87186; 87205; 87635; 99221; 99285; J0690; J0692; J1200; J2543; J3370; Q9967

== ENCOUNTER → 2022-12-26 12:39 | Outpatient (BNVA) | payer OTHER, MEDICAID, SELFPAY | PROVIDERS: PCP Internal Medicine; Visit Provider Surgery ==

== ENCOUNTER → 2022-12-30 15:58 | Outpatient (BNVA) | payer OTHER, MEDICAID, SELFPAY | PROVIDERS: PCP Internal Medicine; Visit Provider Surgery ==

== ENCOUNTER 2024-02-02 11:25 | Outpatient (REF) | payer OTHER, MEDICAID, SELFPAY ==
[2024-02-02 13:45] LABS: Cholesterol 138 mg/dL (<200); HDL Cholesterol 40 mg/dL (>40); LDL Cholesterol Calculated 87 mg/dL (<100); Triglycerides 56 mg/dL (<150)
[2024-02-02 14:00] LABS: Ferritin 95 ng/mL (20-250); Vitamin D 25-OH Total 30.4 ng/mL (>30)
[2024-02-02 14:01] LABS: Folate 6.8 ng/mL (> or = 4.0); Vitamin B12 399 pg/mL (200-900)
[2024-02-02 14:04] LABS: Reflex LDLD? No
[2024-02-04 13:23] LABS: Zinc 53 mcg/dL (60-130)
[2024-02-04 23:49] LABS: TS Negative Control Passed; TS Panel A 2; TS Panel B 0; TS Positive Control Passed; TSpotTB Negative (Negative)
== END 2024-02-02 11:26 | disposition home or self-care (01) ==
LOC: HO.HHCL 11:25
PROVIDERS: Visit Provider Internal Medicine
DX: R73.02 Impaired glucose tolerance (oral) (principal); I10 Essential (primary) hypertension; Z98.84 Bariatric surgery status
CPT/HCPCS: 36415; 80061; 82306; 82607; 82728; 82746; 84630; 86481

== ENCOUNTER 2025-07-04 13:54 | Outpatient (REF) | payer OTHER, SELFPAY ==
--- OUTSIDE RECORDS SUMMARY | 2025-07-04 09:20 | XMS_ITS | Encounter Summary ---
Author Organization [employer] Address [address] [place] [address] Care Team Providers Care Senior Data Integration Developer Name Role Phone Frannie Chandra MD Primary Care Provider + Encounter Details Date Type Department Care Team ([facility] st Contact Info) Description 07/04/2025 9:20 AM EST Office Visit [facility] [address] [place] [id number] Jacqueline Salazar MD [address] [place] [address] Dysuria; Acute cystitis with hematuria Social History Tobacco Use Types Packs/Day Years Used Date Smoking Tobacco: Never Passive Smoke Exposure: Never Smokeless Tobacco: Never Tobacco Cessation:Counseling Given: Not Answered Alcohol Use Standard Drinks/Week Comments Never 0 (1 standard drink = 0.6 oz pur e alcohol) Alcohol Answer Date Recorded How often do you have a drink containing alcohol ? 1 02/04/2025 How many drinks containing a lcohol do you have on a typical day when you are drinking? 0 02/04/2025 How often do you have six or more drinks on one occasion? 0 02/04/2025 Depression Answer Date Recorded Patient Health Questionnaire-9 Score 0 02/02/2024 Patient Health Questionnaire-9 Score 0 02/02/2024 Last PHQ-9: Questionnaire Data Not on file 0 02/02/2024 Housing Stability Answer Date Recorded What is your housing situation today? I have celina coleman 01/27/[address] you li ve. Do you have problems with any of the following? None of the above 01/27/2025 Food Insecurity Answer Date Recorded Within the past 12 months, y ou worried that your food would run out before you got money to buy more: Never True 01/27/2025 Within the past 12 months,th e food you bought just didn't last and you didn't have enough money to get more: Never True 12/2024 Transportation Answer Date Recorded In the past 12 months, has l ack of transportation kept you from medical appts, meetings, work or from getting things needed for daily living? No 01/27/2025 Utilities Answer Date Recorded In the past 12 months, has t he electric, gas, oil or water company threatened to shut off services in your home? No 01/27/2025 Depression Answer Date Recorded Patient Health Questionnaire-2 Score 0 02/04/2025 Internet Access Answer Date Recorded Internet Access Q1 Yes 07/28/2024 Internet Access Q2 Not on file 07/28/2024 Sex and Gender Information Value Date Recorded Sex Assigned at Male 06/24/2022 10:15 AM EDT Legal Sex Male 10:15 AM EDT Gender Identity Male 06/24/2022 10:15 AM EDT Sexual Orientation Choose not to disclose 2021 10:15 AM EDT documented as of this encounter Last Filed Vital Signs Vital Sign Reading Time Taken Comments Blood Pressure 130/92 07/04/2025 9:08 AM EST Man ually Pulse 66 07/04/2025 9:06 AM EST Temperature 36.5 C (97.7 F) 07/04/2025 9:06 AM EST Respiratory Rate 20 07/04/2025 9:06 AM EST Oxygen Saturation 98% 07/04/2025 9:06 AM EST Inhaled Oxygen Concentration - - Weight 100 kg (221 lb 3.2 oz) 07/04/2025 9:06 AM EST Height 175.3 cm (5' 9 ) 07/04/2025 9:06 AM EST Body Mass Index 32.67 07/04/2025 9:06 AM EST documented in this encounter Progress Notes * Jacqueline Lombardo MD - 07/04/2025 9:20 AM EST SUBJECTIVE: Ant Vera is a 40 y.o. year old male who presents for acute visit . Ant Vera, 40 years Urinary Tract Infection Symptoms - [place] a little strange when urinating at night prior to onset - On Friday (July 02, 2025), developed fever and discomfort during urination - Burning sensation at the end of urination - On Friday (July 03, 2025), fever increased, urination became slow with weak stream - Noticed blood at the end of urination on Friday - Blood in urine recurred during urine sample collection prior to visit - Slept through the night with fever prior to visit - No blood or pain during urination in the morning of the encounter day - Reports persistent symptoms and recurrence of blood in urine after urination at work prior to visit - Denies previous history of urinary tract infections Past Reaction to Antibiotics - History of reaction to vancomycin administered intravenously during prior hospitalization for severe illness - Antibiotic was changed after reaction occurred Social History Social History Narrative Not on file Problem List[1] Essential hypertension Frequent episodic tension-type headache Headache History of sleeve gastrectomy Prediabetes Tinea pedis Urticaria H/O bariatric surgery Class 1 obesity due to excess calories with serious comorbidity and body mass index (BMI) of 30.0 to 30.9 in adult Cellulitis of left thigh Cervical lymphadenopathy Acute cystitis with hematuria Family History[2] Review of Systems Constitutional: Negative. HENT: Negative. Respiratory: Negative. Cardiovascular: Negative. Genitourinary: Positive for decreased urine volume, difficulty urinating, dysuria, flank pain, frequency, hematuria and urgency. Negative for enuresis, genital sores, penile discharge, penile pain, penile swelling, scrotal swelling and testicular pain. Musculoskeletal: Positive for back pain. OBJECTIVE: Vitals: 07/04/25 0906 07/04/25 0908 BP: (!) 136/91 (!) 130/92 BP Location: Right arm Left arm Patient Position: Sitting Sitting BP Cuff Size: Large adult Pulse: 66 Resp: 20 Temp: 97.7 ??F (36.5 ??C) TempSrc: Oral SpO2: 98% Weight: 221 lb 3.2 oz (100 kg) Height: 5' 9 (1.753 m) Physical Exam Follow Up: No follow-ups on file. Medications Ordered Prior to Encounter[3] Problem List Items Addressed This Visit Acute cystitis with hematuria Relevant Medications sulfamethoxazole-trimethoprim (Bactrim DS) 800-160 MG tablet Other Visit Diagnoses Dysuria Relevant Orders POCT Urinalysis (Completed) Culture, Urine, Routine Dysuria: - Dysuria associated with urinary tract infection. - Prescribed Bactrim for 7 days. Advised to take acetaminophen for pain. Recommended increased fluid intake and rest. Provided option for work excuse letter for today and tomorrow. Acute cystitis with hematuria: - Acute cystitis with hematuria confirmed by urine findings and clinical presentation, including fever and hematuria after urination. - Ordered urine culture to assess for bacterial resistance and determine need for antibiotic rotation if necessary. Will follow up and adjust antibiotics if culture indicates resistance. Advised to return if symptoms worsen or persist. This note was drafted using Ambient (AI) technology. The patient/patient's guardian has been informed and has consented to the use of this technology: Yes [1] Patient Active Problem List Diagnosis Essential hypertension Frequent episodic tension-type headache Headache History of sleeve gastrectomy Prediabetes Tinea pedis Urticaria H/O bariatric surgery Class 1 obesity due to excess calories with serious comorbidity and body mass index (BMI) of 30.0 to 30.9 in adult Cellulitis of left thigh Cervical lymphadenopathy Acute cystitis with hematuria [2] No family history on file. [3] Current Outpatient Medications on File Prior to Visit Medication Sig Dispense Refill acetaminophen (Tylenol) 500 MG tablet Take 2 tablets by mouth every 6 (six) hours if needed. ibuprofen 200 MG tablet Take 400 mg by mouth every 6 (six) hours if needed (for pain). Multiple Vitamin (multivitamin) capsule Take 1 capsule by mouth Once per day. 30 capsule 11 Sodium Fluoride (PreviDent 5000 Booster Plus) 1.1 % paste Apply 1 Application. to teeth 2 times daily. 112 g 3 No current facility-administered medications on file prior to visit. documented in this encounter Plan of Treatment Scheduled Orders Name Type Priority Associated Diagnoses Orde r Schedule Culture, Urine, Routine Microbiology Routine Dysuria Ordered: 07/04/2025 documented as of this encounter Procedures Procedure Name Priority Date/Time Associated Diagnosis Comments POCT URINALYSIS DIPSTICK Routine 07/04/2025 9:14 AM EST Dysuria documented in this encounter Results * (ABNORMAL) POCT Urinalysis (07/04/2025 9:14 AM EST) Color, UA Yellow Clarity, UA Cloudy Glucose, UA Negative Bilirubin, UA Negative Ketones, UA Positive Comment:Trace Spec Grav, UA 1.030 Comment:>=1.030 Blood, UA Positive(A) Negative, None Detected Comment:Large pH, UA 6.0 Protein, UA Trace Comment:100 mg/dL Urobilinogen, UA 1.0 Leukocytes, UA Few 15(A) Negative, Rare, Trace Comment:small Nitrite, UA Positive(A) Negative, None Detected Appearance, UA cloudy QC Media Lot # [id number] Lot# Expiration Date Urine (Urine, Random) 07/04/2025 9:14 AM EST Jacqueline Lombardo MD POINT OF CARE TEST EN TER/EDIT ORDERABLES Final Result documented in this encounter Visit Diagnoses Diagnosis Dysuria Acute cystitis with hematuria documented in this encounter Additional Health Concerns Assessment Noted Time PHQ-9 Depression Total Score: 0 02/02/20 24 10:27 AM EDT documented as of this encounter Care Teams Senior Data Integration Developer Relationship Specialty Start Date End Date Frannie Chandra MD [address] [place] [id number] PCP - General Family Medicine 03/22/19 documented as of this encounter
--- OUTSIDE RECORDS SUMMARY | 2025-07-04 16:10 | XMS_ITS | Clinical Summary ---
Author Organization [employer] Address [address] [facility] 7[address] [place] [address] Care Team Providers Care Bus Attendant Name Role Phone Frannie Chandra MD Primary Care Provider + Allergies Active Allergy Reactions Criticality Noted Date Comments Vancomycin Other High 12/23/2022 Patient experienced vancomycin flushing syndrome when hospitalized at [facility] from 12/07/22 to 12/09/22 Medications acetaminophen (Tylenol) 500 MG tablet Take 2 tablets by mouth every 6 (six) hours if needed. 07/20/2018 Active ibuprofen 200 MG tablet Take 400 mg by mouth every 6 (six) hours if needed (for pain). Active Multiple Vitamin (multivitamin) capsule Take 1 capsule by mouth Once per day. 30 capsule 11 08/04/2024 5 Active Sodium Fluoride (PreviDent 5000 Booster Plus) 1.1 % paste Apply 1 Application. to teeth 2 times daily. 112 g 3 08/09/2024 Active sulfamethoxazol e-trimethoprim (Bactrim DS) 800-160 MG tabletIndicatio ns:Acute cystitis with hematuria Take 1 tablet by mouth 2 times daily for 7 days. 14 tablet 07/04/2025 5 Active Active Problems Problem Noted Date Diagnosed Date Acute cystitis with hematuria 07/04/2025 Cellulitis of left thigh 02/04/2025 Assessment & Plan (02/04/2025 3:16 PM EDT): Prescription for doxycycline x 7 to 10 days, keep the area clean and dry and reconsult as needed Cervical lymphadenopathy 02/04/2025 Assessment & Plan (02/04/2025 3:17 PM EDT): Most likely benign, advised to keep an eye on the symptoms, follow-up with me in 6 weeks we will decide to do additional workup if needed. Class 1 obesity due to exces s calories with serious comorbidity and body mass index (BMI) of 30.0 to 30.9 in adult 08/04/2024 Assessment & Plan (02/04/2025 3:16 PM EDT): S/P Bariatric Surgery, doing well. Recommended to decrease soda and sugary beverage consumption, increase protein intake with meals (at least 1 portion of protein with each meal) to assist with satiety, increase dietary fiber Recommended at least 150 min/week of moderate intensity exercise. Continue multivitamins, advised to reach out to general surgery regarding specific vitamin supplementation. Check B12, ferritin, vitamin D once per year Assessment & Plan (08/04/2024 9:30 AM EST): S/P Bariatric Surgery, doing well. Recommended to decrease soda and sugary beverage consumption, increase protein intake with meals (at least 1 portion of protein with each meal) to assist with satiety, increase dietary fiber Recommended at least 150 min/week of moderate intensity exercise. Will order multivitamins and Vis, advised to reach out to general surgery regarding specific vitamin supplementation. H/O bariatric surgery 12/26/2022 Assessment & Plan (03/16/2024 12:27 PM EDT): Continues to gain weight after bariatric surgery 2y ago. Advised to restart weight reduction program, he will need to go back on to calorie count diet. Assessment & Plan (07/29/2023 11:17 AM EST): Pt has gained a few pounds since last visit, counseled wt reduction, Discussed re weight reduction options including exercise, life style modifications, diet, referral to enrichment specialist. Discussed re lower calorie intake, increase dietary fiber Pt decline flu and Covid IZ today FU 6 month w/ labs Assessment & Plan (01/27/2023 10:35 AM EDT): doing well, not taking any vitamin supplementation ,vitamin and ferratin levels wnl. Will check B12, iron, vit d, zinc ,and B1 every year. Discussed re weight reduction options including exercise, life style modifications, diet, referral to enrichment specialist. Discussed re lower calorie intake, increase dietary fiber FU with general surgery as recommended Assessment & Plan (12/26/2022 11:59 AM EDT): significant weight reduction and pt with significant improvement of JUNIOR and IFG check vitamin levels due to potential malabsorption and FU with me next month. Headache 12/22/2022 Assessment & Plan (08/04/2024 9:29 AM EST): Probably muscular, advised to use Tylenol prn or use pillow for better cervical support to sleep. Urticaria 12/22/2022 History of sleeve gastrectomy 01/26/2021 Prediabetes 12/14/2018 Assessment & Plan (02/04/2025 3:15 PM EDT): Controlled, A1c is below goal. Will follow A1c in 6 months and if continues to be below 5.5, we will discharge him to follow-up every year. I congratulated him for keeping his weight and healthy diet I have discussed with patient regarding increasing physicial activity and decrease calorie intake. Order labs prior to next appointment Assessment & Plan (02/04/2025 11:00 AM EDT): >>ASSESSMENT AND PLAN FOR IMPAIRED GLUCOSE TOLERANCE WRITTEN ON 01/27/2023 10:35 AM BY WILBER JOSE Resolved after bariatric surgery I have discussed with patient regarding increasing physicial activity and decrease calorie intake I'll check FBS with next set of labs. To check RBS at next visit. FU with me next visit Assessment & Plan (02/04/2025 11:00 AM EDT): >>ASSESSMENT AND PLAN FOR IMPAIRED GLUCOSE TOLERANCE WRITTEN ON 03/16/2024 12:28 PM BY FRANNIE CHANDRA MD I have discussed with patient regarding increasing physicial activity and decrease calorie intake I'll check FBS with next set of labs. To check RBS at next visit. FU with me next visit Assessment & Plan (02/04/2025 11:00 AM EDT): >>ASSESSMENT AND PLAN FOR PREDIABETES WRITTEN ON 07/29/2023 11:11 AM BY JUANITA BARAJAS Controlled. A1c is at goal. Counseled re more frequent low calorie/carb meals. Check fgstk three x daily Encouraged physical activity as tolerated. FU in 6 months. >>ASSESSMENT AND PLAN FOR IMPAIRED GLUCOSE TOLERANCE WRITTEN ON 07/29/2023 11:11 AM BY JUANITA BARAJAS See above Assessment & Plan (12/26/2022 12:01 PM EDT): last A1C 2 months ago was wnl Counseled re more frequent low calorie/carb meals. Encouraged physical activity as tolerated. Check A1C every 6 months Frequent episodic tension-type headache 03/20/20 18 Essential hypertension 01/06/2017 Assessment & Plan (08/04/2024 9:28 AM EST): Controlled. Counseled re low salt diet/increase moderate physical activity. Check home BP BIW and prn CP/FELDER/MARTINEZ Non smoking patient. Pt declined influenza vaccination today. Will continue to monitor every year. Assessment & Plan (07/29/2023 11:10 AM EST): Fairly controlled. Off meds. BP almost at goal Counseled re low salt diet/increase moderate physical activity. Check home BP BIW and prn CP/FELDER/MARTINEZ Non smoking patient. Assessment & Plan (01/27/2023 10:36 AM EDT): controlled with lifestyle modifications s/p bariatric surgery He is off medication at this time Counseled re low salt diet/increase moderate physical activity. Check home BP BIW and prn CP/FELDER/MARTINEZ Non smoking patient. FU in 6 months Magen pedis 01/06/2017 Assessment & Plan (02/04/2025 3:17 PM EDT): Recurrent, controlled with clotrimazole. Continue clotrimazole. Assessment & Plan (03/16/2024 12:28 PM EDT): Use clotrimazole cream to affected area x 2w Resolved Problems Problem Noted Date Diagnosed Date Resolved Date Acute bilateral low back zabrina n without sciatica 08/04/2024 02/04/2025 Assessment & Plan (08/04/2024 9:30 AM EST): Advised to take Tylenol prn, refer to PT. Advised to get FMLA so he can take time off work to pursue treatment. Perineal abscess, superficial 12/26/2022 02/04/2025 Assessment & Plan (12/26/2022 12:00 PM EDT): resolved, s/p antibiotics Abscess of right thigh 12/22/202202/04 Cellulitis of right thigh 12/22/2022 Foot pain 12/22/2022 02/04/2025 Obstructive sleep apnea syndrome 12/22/2022 08/04/2024 Overview (01/27/2023): Sp bariatric surgery 2021/resolved Assessment & Plan (12/26/2022 12:00 PM EDT): reportedly resolved, s/p bariatric surgery will request bariatric surgery notes or last sleep study Periumbilical pain 12/22/2022 4 Edema of lower extremity 01/22/2019 Lymphadenitis 08/11/2018 02/04/2025 Encounters Date Type Department Care Team Description 07/04/2025 9:20 AM EST Office Visit [facility] [address] [place] [id number] Jacqueline Salazar MD Dysuria; Acute cystitis with hematuria 07/04/2025 Travel from Last 3 Months Immunizations Immunization Administration Dates Next Due HepB-CpG 01/30/2023,12/26/2022 Influenza injectable quadriv alent preservative free 06/01/2021,06/16/2020,09/05/2015 Tdap 05/23/2017,09/05/2015 Social History Tobacco Use Types Packs/Day Years [...] not to disclose 2021 10:15 AM EDT Last Filed Vital Signs Vital Sign Reading [...] Mass Index 32.67 07/04/2025 9:06 AM EST Plan of Treatment Health Maintenance Due Date Last Done Comments HIV Screening 1985 Disability Screening 1985 HPV Vaccines (1 - Male 3-dose series) 02/25/2000 Hepatitis C Screening 2003 Dental Oral Exam 02/08/2025 08/09/2024, , 07/12/2016 Dental Prophylaxis 02/08/2025 08/09/2024, 0 05/13/2022, 11/01/2021, Additional history exists COVID-19 Vaccine ( season) 2025 08/29/2021, 01/23/2021, 12/26/2020 Influenza Vaccine (#1) 2025 , 06/16/2020, 09/05/2015 Dental X-Ray: Bitewings 08/10/2025 08/09/20 24, 05/13/2022, 11/20/2020, Additional history exists SDOH Screening 01/27/2026 01/27/2025 Alcohol/Substance Use Screening 02/04/2026 02/04/2025 Depression Screening 02/04/2026 02/04/2025, 02/02/20 24 Diabetes: Hemoglobin A1C 02/04/2026 025, 02/02/2024, 12/26/2022, Additional history exists Family Planning (PISQ) 02/04/2026 02/04/2025 Tobacco Screening 07/04/2026 07/04/2025 DTaP/Tdap/Td Vaccines (3 - Td or Tdap) 05/23/2027 05/23/2017, 09/05/2015 Dental X-Ray: Full Mouth 08/10/2027 024, 11/20/2020, 07/24/2018, Additional history exists Lipid Panel 02/01/2029 02/02/2024, 05/0 11/2022, 11/28/2020, Additional history exists Zoster Vaccines (1 of 2) 2035 RSV Patients and Patients Aged 60 years or older (1 - 1-dose 75+ series) 02/25/2060 Hepatitis B Vaccines Completed 01/30/2023, 12/27/19 23 HIB Vaccines Aged Out No longer eligi ble based on patient's age to complete this topic Hepatitis A Vaccines Aged Out No long er eligible based on patient's age to complete this topic IPV Vaccines Aged Out No longer eligi ble based on patient's age to complete this topic Meningococcal B Vaccine Aged Out No l onger eligible based on patient's age to complete this topic Meningococcal Vaccine Aged Out No belinda smiley eligible based on patient's age to complete this topic Pneumococcal Vaccine: Pediatrics (0 to 5 Years) and At-Risk Patients (6 to 49) Years Aged Out No longer eligible based on patient's age to complete this topic RSV under 20 months Aged Out No longe r eligible based on patient's age to complete this topic Rotavirus Vaccines Aged Out No longer eligible based on patient's age to complete this topic Procedures Procedure Name Priority Date/Time Associated Diagnosis Comments POCT URINALYSIS DIPSTICK Routine 07/04/2025 9:14 AM EST Dysuria POCT GLYCATED HEMOGLOBIN, TOTAL Routine 02/04/2025 10:40 AM EDT Prediabetes PROPHYLAXIS - ADULT Routine 08/09/2024 1 0:00 AM EST Dental calculus Dental plaque INTRAORAL - COMPLETE SERIES OF RADIOGRAPHIC IMAGES Routine 08/09/2024 10:00 AM EST PERIODIC ORAL EVALUATION - ESTABLISHED PATIENT Routine 08/09/2024 10:00 AM EST LIPID PANEL WITH REFLEX TO DIRECT LDL Routine 02/02/2024 11:26 AM EDT Impaired glucose tolerance Essential hypertension from Last 3 Months or Most Recently Relevant to Health Maintenance Results * (ABNORMAL) POCT Urinalysis (07/04/2025 9:14 [...] CARE TEST EN TER/EDIT ORDERABLES Final Result * POCT HGB A1C (02/04/2025 10:40 AM EDT) Pathologist [facility] Hemoglobin A1C 5.3 4.0 - 6.0 % Blood 02/04/2025 10:4 0 AM EDT Frannie Chandra MD POINT OF CARE TEST ENTER /EDIT ORDERABLES Final Result * (ABNORMAL) Lipid Panel with Reflex to Direct LDL (02/02/2024 11:26 AM EDT) Triglycerides 56 <150 mg/dL [facility] Comment:Desirable Triglyceri de: less than 150 mg/dLBorderline High Triglyceride 150-199 mg/dLHigh Triglyceride: 200-499 mg/dLVery High Triglyceride: greater than or equal to 5OO mg/dL Cholesterol 138 <200 mg/dL [facility] Comment:Desirable Cholestero l: less than 200 mg/dLBorderline High Cholesterol: 200-239 mg/dLHigh Cholesterol: greater than 239 mg/dL LDL Cholesterol Calculated 87 <100 mg/dL [facility] Comment:Desirable LDL: less than 100 mg/dLNear Optimal/Above Optimal LDL: 110- 129 mg/dLBorderline High LDL: 130-159 mg/dLHigh LDL: 160-189 mg/dLVery High LDL: greater than or equal to 190 mg/dL HDL Cholesterol 40(L) >40 mg/dL [facility] Comment:Desirable HDL: great er than 40 mg/dL Note: This HDL assay may give artificially low results in patients with liver disease. Blood 02/02/2024 11:2 6 AM EDT 02/02/2024 1:08 PM EDT us Frannie Chandra MD LAB BLOOD ORDERABLES Fin al Result [facility] [address] [place] [address] [phone] from Last 3 Months or Most Recently Relevant to Health Maintenance Insurance [facility] , [address] [place] [address] DENTAL - HSN PARTIAL (MEDICAID) Care Teams Bus Attendant Relationship Specialty Start Date End Date Frannie Chandra MD [address] [place] [phone] PCP - General Family Medicine 03/22/19
--- OUTSIDE RECORDS SUMMARY | 2025-07-04 16:10 | XMS_ITS | Encounter Summary ---
Author Organization [employer] Address [address] [place] [address] Care Team Providers Care Remote Sensing Surveyor Name Role Phone Frannie Chandra MD Primary Care Provider + Encounter Details Date Type Department Care Team (Latest Contact Info) Description 07/04/2025 Travel Social History Tobacco Use Types Packs/Day Years Used Date Smoking Tobacco: Never Passive Smoke Exposure: Never Smokeless Tobacco: Never Alcohol Use Standard Drinks/Week Comments Never 0 [...] AM EDT documented as of this encounter Plan of Treatment Not on file documented as of this encounter Visit Diagnoses Not on filedocumented in this encounter Additional Health Concerns Assessment Noted Time PHQ-9 Depression Total Score: 0 02/02/20 24 10:27 AM EDT documented as of this encounter Care Teams Remote Sensing Surveyor Relationship Specialty Start Date End Date Frannie Chandra MD [address] [place] [phone] PCP - General Family Medicine 03/22/19 documented as of this encounter
--- OUTSIDE RECORDS SUMMARY | 2025-07-04 16:10 | XMS_ITS | Encounter Summary ---
Author Organization [employer] [facility] Address [address] [facility] [place] [address] Care Team Providers Care Sheet Metal Assembler And Riveter Name Role Phone Frannie Chandra MD Primary Care Provider + Encounter Details Date Type Department Care Team (Latest Contact Info) Description 05/04/2019 Abstract [facility] CONVERSIONS Dental, Provider, DDS Social History Tobacco Use Types Packs/Day Years Used Date Smoking Tobacco: Never Assessed Sex and Gender Information Value Date Recorded Sex Assigned at Male 06/24/2022 10:15 AM EDT Legal Sex Male 10:15 AM EDT Gender Identity Male 06/24/2022 10:15 AM EDT Sexual Orientation Choose not to disclose 2021 10:15 AM EDT documented as of this encounter Plan of Treatment Not on file documented as of this encounter Visit Diagnoses Not on filedocumented in this encounter Care Teams Sheet Metal Assembler And Riveter Relationship Specialty Start Date End Date Frannie Chandra MD [address] [place] [phone] PCP - General Family Medicine 03/22/19 documented as of this encounter
--- OUTSIDE RECORDS SUMMARY | 2025-07-04 16:10 | XMS_ITS | Encounter Summary ---
Author Organization [facility] Address [address] [place] [address] Care Team Providers Care Billboard Erector Helper Name Role Phone Frannie Chandra MD Primary Care Provider + Encounter Details Date Type Department Care Team (Latest Contact Info) Description 05/13/2022 Abstract [facility] Dental, Provider, DDS Social History Tobacco [...] on filedocumented in this encounter Care Teams Billboard Erector Helper Relationship Specialty Start Date End Date Frannie Chandra MD [address] [place] [phone] PCP - General Family Medicine 03/22/19 documented as of this encounter
--- OUTSIDE RECORDS SUMMARY | 2025-07-04 16:10 | XMS_ITS | Encounter Summary ---
Author Organization [employer] [facility] Address [address] [facility] 7t [place] [address] Care Team Providers Care Wood Block Artist Name Role Phone Frannie Chandra MD Primary Care Provider + Encounter Details Date Type Department Care Team (Latest Contact Info) Description 11/20/2020 Abstract [facility] CONVERSIONS Dental, Provider, DDS Social History [...] on filedocumented in this encounter Care Teams Wood Block Artist Relationship Specialty Start Date End Date Frannie Chandra MD [address] [place] [phone] PCP - General Family Medicine 03/22/19 documented as of this encounter
== END 2025-07-04 13:55 | disposition home or self-care (01) ==
LOC: HO.HHCLNP 13:54
PROVIDERS: Visit Provider Internal Medicine
DX: R30.0 Dysuria (principal)
CPT/HCPCS: 87086; 87088; 87186